=== PATIENT | female | born 1955 | race Caucasian/White ===

== ENCOUNTER 2022-09-28 16:15 | Inpatient (IN) | payer MEDICARE, OTHER ==
[~2022-09-28] VITALS: Ht 165.1 cm; Wt 85.7 kg
[2022-09-28] MEDS ORDERED: IV NS 0.9% 1,000 ML BAG IV ONE (17:00)
[2022-09-28] MEDS ORDERED: LISI20TA30 PO (17:18)
[2022-09-28] MEDS ORDERED: BLOO-1280 IN (17:18)
[2022-09-28] MEDS ORDERED: LEVO50TA PO (17:18)
[2022-09-28] MEDS ORDERED: CARV6.252 PO (17:18)
[2022-09-28] MEDS ORDERED: ATOR40TA PO (17:18)
[2022-09-28] MEDS ORDERED: MEDR10TA10 PO (17:18)
[2022-09-28] MEDS ORDERED: FOLI0.4T6 PO (17:18)
[2022-09-28] MEDS ORDERED: FURO-145 PO (17:18)
[2022-09-28 17:50] LABS: BASOPHILS % (AUTO) 0.2 % (0.0-2.0); EOSINOPHILS % (AUTO) 0.1 % (0.0-6.0); HEMATOCRIT 22 % (33-45); MEAN CORPUSCULAR HEMOGLOBIN 24 PG (26.0-33.0); MEAN CORPUSCULAR HGB CONC 28 g/dl (31.0-36.0); MEAN CORPUSCULAR VOLUME 83 fL (82-100); MONOCYTES # (AUTO) 0.9 K/uL (0.1-1.30); NEUTROPHILS # (AUTO) 14.9 K/uL (1.8-8.9); NEUTROPHILS % (AUTO) 83.7 % (43.0-81.0); PLATELET COUNT (AUTO) 75 K/uL (150-450); RED BLOOD CELL COUNT(AUTO) 2.69 MIL/uL (4.0-5.2); RED CELL DISTRIBUTION WIDTH 19.5 % (11.5-15.0); WHITE BLOOD COUNT (AUTO) 17.8 K/uL (4.3-11.0)
[2022-09-28 17:58] LABS: HEMOGLOBIN 6.4 g/dL (11.5-14.8)
[2022-09-28 18:06] LABS: INR 1.05 (0.91-1.10); PARTIAL THROMBOPLASTIN TIME 32.1 SEC (24.3-34.3)
[2022-09-28 18:18] LABS: LYMPHOCYTES % (MANUAL) 12 % (16-48); MONOCYTES % (MANUAL) 3 % (0-11.0); NEUTROPHILS % (MANUAL) 85 (42-76); PLATELET ESTIMATE DECREASED
[2022-09-28 18:46] LABS: ALANINE AMINOTRANSFERASE 12 U/L (12-78); ALKALINE PHOSPHATASE 260 U/L (46-116); ASPARTATE AMINOTRANSFERASE 28 U/L (15-37); BILIRUBIN,DIRECT 0.1 mg/dL (0.0-0.2); BILIRUBIN,TOTAL 0.3 mg/dL (0.2-1.0); CALCIUM, SERUM 7.9 mg/dL (8.5-10.1); CARBON DIOXIDE 19 mmol/L (21-32); CHLORIDE 108 mmol/L (98-107); CREATININE 3.4 mg/dL (0.6-1.3); GLUCOSE 127 mg/dL (74-106); SODIUM SERUM 137 mmol/L (136-145); TOTAL PROTEIN, SERUM 5.8 g/dL (6.4-8.2); UREA NITROGEN, BLOOD 56 mg/dL (7-18)
[2022-09-28] MEDS ORDERED: CEFTRIAXONE 1GM BAG (ER ONLY) 50 ML IV ONE ×2 (18:59→19:00)
[2022-09-28] MEDS ORDERED: AZITHROMYCIN 500 MG in IV D5W 250 ML IV ONE (19:00)
[2022-09-28 19:01] LABS: LACTIC ACID 2.8 mmol/L (0.4-2.0)
[2022-09-28 19:06] LABS: ALBUMIN 1.1 g/dL (3.4-5.0); POTASSIUM 7.8 mmol/L (3.5-5.1)
[2022-09-28] MEDS ORDERED: INSULIN REGULAR, HUMAN 100 UNIT/ML 10 ML VIAL IV ONE (19:30)
[2022-09-28] MEDS ORDERED: CALCIUM CHLORIDE 1,000 MG/10 ML DISP.SYRIN IV ONE (19:30)
[2022-09-28] MEDS ORDERED: ALBUTEROL FS 2.5 MG/3 ML VIAL.NEB NEB ONE (19:30)
[2022-09-28] MEDS ORDERED: SODIUM BICARBONATE SYR 100 MEQ in IV D5W 1,000 ML IV ONE (19:30)
[2022-09-28] MEDS ORDERED: SODIUM BICARBONATE SYR 50 MEQ/50 ML DISP.SYRIN IV ONE (19:30)
[2022-09-28] MEDS ORDERED: ACETAMINOPHEN 650 MG/SUPP.RECT RC ONE ×2 (19:30→21:08)
[2022-09-28] MEDS ORDERED: DEXTROSE 50%-WATER 50 ML DISP.SYRIN IV ONE (19:30)
[2022-09-28] MEDS ORDERED: ASPIRIN 300 MG/SUPP.RECT RC ONE ×2 (20:00→21:08)
[2022-09-28] MEDS ORDERED: AZITHROMYCIN 500 MG VIAL ONE (20:10)
[2022-09-28] MEDS ORDERED: DEXTROSE 50%-WATER 50 ML DISP.SYRIN ONE (21:08)
[2022-09-28] MEDS ORDERED: SODIUM BICARBONATE SYR 50 MEQ/50 ML DISP.SYRIN ONE (21:08)
[2022-09-28] MEDS ORDERED: INSULIN REGULAR, HUMAN 100 UNIT/ML 10 ML VIAL ONE (21:09)
[2022-09-28] MEDS ORDERED: ALBUTEROL FS 2.5 MG/3 ML VIAL.NEB ONE (21:27)
[2022-09-28 21:35] VITALS: O2SAT 97
[2022-09-28] MEDS ORDERED: CALCIUM CHLORIDE 1,000 MG/10 ML DISP.SYRIN ONE (21:48)
[2022-09-28 22:35] VITALS: O2SAT 100
[2022-09-28] MEDS ORDERED: Z GUARD REMEDY 4 OZ OINT TP PRN (23:00)
[2022-09-28] MEDS ORDERED: ZOLPIDEM TARTRATE 5 MG TABLET PO PRN (23:00)
[2022-09-28] MEDS ORDERED: SODIUM POLYSTYRENE SULFONATE 15 G/60 ML BOTTLE PO ONE (23:00)
[2022-09-28] MEDS ORDERED: MAG HYDROX/AL HYDROX/SIMETH 30 ML UDC PO PRN (23:00)
[2022-09-28] MEDS ORDERED: IV 1/2NS 1000 ML 1,000 ML IV PRN (23:00)
[2022-09-28] MEDS ORDERED: MAGNESIUM HYDROXIDE 30 ML UDC PO PRN (23:00)
[2022-09-28] MEDS ORDERED: ACETAMINOPHEN 325 MG TABLET PO PRN (23:00)
[2022-09-28] MEDS ORDERED: ONDANSETRON HCL/PF 4 MG/2 ML VIAL IVP PRN (23:00)
[2022-09-28 23:05] VITALS: BP 122/66; TEMP 99.1; O2SAT 96
[2022-09-29] VITALS (29 sets, daily range): BP systolic 94–122; BP diastolic 34–69; TEMP 97.5–208.4; O2SAT 92–100
[2022-09-29] MEDS ORDERED: SODIUM POLYSTYRENE SULFONATE 15 G/60 ML BOTTLE ONE (00:03)
[2022-09-29] MEDS: LEVOTHYROXINE SODIUM 50 MCG TABLET PO SCH (06:42)
[2022-09-29 07:52] LABS: BASOPHILS % (AUTO) 0.2 % (0.0-2.0); HEMATOCRIT 23 % (33-45); LYMPHOCYTES # (AUTO) 1.8 K/uL (0.8-4.8); LYMPHOCYTES % (AUTO) 9.8 % (20.0-44.0); MEAN CORPUSCULAR HEMOGLOBIN 24 PG (26.0-33.0); MEAN CORPUSCULAR HGB CONC 30 g/dl (31.0-36.0); MEAN CORPUSCULAR VOLUME 80 fL (82-100); MONOCYTES # (AUTO) 0.7 K/uL (0.1-1.30); NEUTROPHILS # (AUTO) 15.9 K/uL (1.8-8.9); PLATELET COUNT (AUTO) 57 K/uL (150-450); RED BLOOD CELL COUNT(AUTO) 2.86 MIL/uL (4.0-5.2); RED CELL DISTRIBUTION WIDTH 17.9 % (11.5-15.0); WHITE BLOOD COUNT (AUTO) 18.5 K/uL (4.3-11.0)
[2022-09-29 07:57] LABS: HEMOGLOBIN 6.9 g/dL (11.5-14.8)
[2022-09-29 08:04] LABS: CREATININE 3.5 mg/dL (0.6-1.3); MAGNESIUM 2.5 mg/dL (1.8-2.4); PHOSPHORUS 3.9 mg/dL (2.5-4.9)
[2022-09-29 08:13] LABS: THYROID STIMULATING HORMONE 9.215 uIU/mL (0.358-3.74)
[2022-09-29 08:15] LABS: POTASSIUM 6.5 mmol/L (3.5-5.1)
[2022-09-29] MEDS ORDERED: SODIUM POLYSTYRENE SULFONATE 15 G/60 ML BOTTLE NG ONE ×2 (08:30→17:00)
[2022-09-29] MEDS: CARVEDILOL 6.25 MG TABLET PO SCH ×2 (08:36→20:34)
[2022-09-29] MEDS ORDERED: ALBUTEROL FS 2.5 MG/3 ML VIAL.NEB NEB ONE (09:00)
[2022-09-29] MEDS ORDERED: DEXTROSE 50%-WATER 50 ML DISP.SYRIN IVP ONE (09:00)
[2022-09-29] MEDS ORDERED: INSULIN REGULAR, HUMAN 100 UNIT/ML 10 ML VIAL SQ ONE (09:00)
[2022-09-29] MEDS ORDERED: INSULIN REGULAR, HUMAN 100 UNIT/ML 10 ML VIAL IV ONE (09:00)
[2022-09-29] MEDS: HEPARIN SODIUM, PORCINE 5000 UNITS/1 ML VIAL SQ SCH ×2 (10:00→20:35)
[2022-09-29 10:22] LABS: THYROID STIMULATING HORMONE 8.788 uIU/mL (0.358-3.74)
[2022-09-29] MEDS: FOLIC ACID 1 MG TABLET PO SCH (11:17)
[2022-09-29] MEDS: PANTOPRAZOLE 40 MG VIAL IV SCH (11:17)
[2022-09-29 12:18] LABS: APPEARANCE,URINE TURBID (CLEAR); BILIRUBIN,URINE 1+ (NEGATIVE); BLOOD, URINE 3+ Ery/uL (NEGATIVE); COLOR,URINE AMBER (YELLOW); EOSINOPHIL,URINE None Seen; KETONES,URINE NEGATIVE (NEGATIVE); LEUKOCYTE ESTERASE ,URINE 2+ (NEGATIVE); NITRITE, URINE POSITIVE (NEGATIVE); PROTEIN,URINE 2+ mg/dl (NEGATIVE); UGLUCOSE NEGATIVE (NEGATIVE); UROBILINOGEN,URINE 0.2 EU/dL (0.2)
[2022-09-29 12:23] LABS: ADD URINE CULTURE YES; BACTERIA,URINE Moderate /HPF (None Seen); SQUAMOUS EPITHELIAL CELL,UR Few /HPF (None Seen); WBC,URINE 21-50 /HPF (0-3)
[2022-09-29 12:28] LABS: CREATININE, URINE 50.4 MG/DL (30.0-125.0)
[2022-09-29 12:29] LABS: CALCIUM, SERUM 8.2 mg/dL (8.5-10.1); CREATININE 3.5 mg/dL (0.6-1.3)
[2022-09-29 12:38] LABS: THYROID STIMULATING HORMONE 8.824 uIU/mL (0.358-3.74)
[2022-09-29 12:39] LABS: POTASSIUM 6.4 mmol/L (3.5-5.1)
[2022-09-29 12:40] LABS: LACTIC ACID 5.5 mmol/L (0.4-2.0)
[2022-09-29] MEDS: medroxyPROGESTERone ACET 5 MG TABLET PO SCH (14:00)
[2022-09-29] MEDS: NEPRO 1,000 ML BOTTLE GT PRN (16:57)
[2022-09-29] MEDS: IV NS 0.9% 1,000 ML IV PRN (16:57)
[2022-09-29 17:24] LABS: CALCIUM, SERUM 7.6 mg/dL (8.5-10.1); CREATININE 3.2 mg/dL (0.6-1.3); POTASSIUM 5.1 mmol/L (3.5-5.1)
[2022-09-29] MEDS: CEFTRIAXONE 1 G in IV D5W 50 ML IV SCH (19:19)
[2022-09-29] MEDS: AZITHROMYCIN 500 MG in IV D5W 250 ML IV SCH (20:34)
[2022-09-29 21:19] LABS: ANISOCYTOSIS 1+; BAND % (MANUAL) 1 % (0.0-5.0); EOSINOPHILS % (MANUAL) 1 % (0-4); LYMPHOCYTES % (MANUAL) 10 % (16-48); MONOCYTES % (MANUAL) 3 % (0-11.0); NEUTROPHILS % (MANUAL) 85 (42-76); PLATELET ESTIMATE DECREASED
[2022-09-29 21:20] LABS: OVALOCYTES 1+
[2022-09-29] MEDS ORDERED: ATORVASTATIN 40 MG TABLET PO SCH (22:00)
[2022-09-30] VITALS (24 sets, daily range): BP systolic 89–123; BP diastolic 44–68; TEMP 97.9–98.5; O2SAT 95–100
[2022-09-30 03:43] LABS: BASOPHILS % (AUTO) 0.1 % (0.0-2.0); EOSINOPHILS % (AUTO) 0.1 % (0.0-6.0); HEMATOCRIT 25 % (33-45); HEMOGLOBIN 7.9 g/dL (11.5-14.8); LYMPHOCYTES # (AUTO) 1.4 K/uL (0.8-4.8); LYMPHOCYTES % (AUTO) 8.9 % (20.0-44.0); MEAN CORPUSCULAR HEMOGLOBIN 25 PG (26.0-33.0); MEAN CORPUSCULAR HGB CONC 31 g/dl (31.0-36.0); MEAN CORPUSCULAR VOLUME 81 fL (82-100); MONOCYTES # (AUTO) 0.5 K/uL (0.1-1.30); MONOCYTES % (AUTO) 3.4 % (2.0-12.0); NEUTROPHILS # (AUTO) 13.7 K/uL (1.8-8.9); NEUTROPHILS % (AUTO) 87.5 % (43.0-81.0); PLATELET COUNT (AUTO) 52 K/uL (150-450); RED BLOOD CELL COUNT(AUTO) 3.11 MIL/uL (4.0-5.2); RED CELL DISTRIBUTION WIDTH 17.9 % (11.5-15.0); WHITE BLOOD COUNT (AUTO) 15.7 K/uL (4.3-11.0)
[2022-09-30 05:05] LABS: BILIRUBIN,TOTAL 0.2 mg/dL (0.2-1.0); CALCIUM, SERUM 7.6 mg/dL (8.5-10.1); CREATININE 2.6 mg/dL (0.6-1.3); MAGNESIUM 2.2 mg/dL (1.8-2.4); PHOSPHORUS 4.3 mg/dL (2.5-4.9); POTASSIUM 4.2 mmol/L (3.5-5.1); TOTAL PROTEIN, SERUM 4.6 g/dL (6.4-8.2)
[2022-09-30 05:08] LABS: ALBUMIN 0.9 g/dL (3.4-5.0)
[2022-09-30 05:31] LABS: HIV-1 p24 ANTIGEN NON REACTIVE (NONREACTIVE); HIV-1/2 ANTIBODY NON REACTIVE (NONREACTIVE)
[2022-09-30] MEDS: IV NS 0.9% 1,000 ML IV PRN ×2 (06:01→16:49)
[2022-09-30] MEDS: LEVOTHYROXINE SODIUM 50 MCG TABLET PO SCH (06:41)
[2022-09-30] MEDS: HEPARIN SODIUM, PORCINE 5000 UNITS/1 ML VIAL SQ SCH ×2 (08:23→20:41)
[2022-09-30] MEDS: PROSOURCE / PROSTAT (PYXIS) 30 ML UDC GT SCH (08:28)
[2022-09-30] MEDS: PANTOPRAZOLE 40 MG VIAL IV SCH (08:28)
[2022-09-30] MEDS: FOLIC ACID 1 MG TABLET PO SCH (08:28)
[2022-09-30] MEDS: CARVEDILOL 6.25 MG TABLET PO SCH (08:30)
[2022-09-30] MEDS: medroxyPROGESTERone ACET 5 MG TABLET PO SCH (11:28)
[2022-09-30] MEDS ORDERED: medroxyPROGESTERone ACET 5 MG TABLET GT SCH (12:22)
[2022-09-30] MEDS ORDERED: MAG HYDROX/AL HYDROX/SIMETH 30 ML UDC GT PRN (12:23)
[2022-09-30] MEDS ORDERED: ZOLPIDEM TARTRATE 5 MG TABLET GT PRN (12:23)
[2022-09-30] MEDS ORDERED: MAGNESIUM HYDROXIDE 30 ML UDC GT PRN (12:23)
[2022-09-30 13:32] LABS: ANISOCYTOSIS 1+; BASOPHILS % (MANUAL) 0 % (0.0-2.0); EOSINOPHILS % (MANUAL) 0 % (0-4); LYMPHOCYTES % (MANUAL) 11 % (16-48); MONOCYTES % (MANUAL) 5 % (0-11.0); NEUTROPHILS % (MANUAL) 84 (42-76); PLATELET ESTIMATE DECREASED
[2022-09-30] MEDS: ARGININE/GLUTAMINE/CALCIUM BMB 1 EACH POWD.PACK GT SCH (16:53)
[2022-09-30] MEDS: CEFTRIAXONE 1 G in IV D5W 50 ML IV SCH (18:33)
[2022-09-30] MEDS: AZITHROMYCIN 500 MG in IV D5W 250 ML IV SCH (19:48)
[2022-09-30] MEDS: CARVEDILOL 6.25 MG TABLET GT SCH (20:41)
[2022-09-30] MEDS: ATORVASTATIN 40 MG TABLET GT SCH (22:57)
[2022-10-01] VITALS (21 sets, daily range): BP systolic 97–131; BP diastolic 43–83; TEMP 97.8–98.1; O2SAT 21–100
[2022-10-01] MEDS: NEPRO 1,000 ML BOTTLE GT PRN (01:16)
[2022-10-01] MEDS: IV NS 0.9% 1,000 ML IV PRN ×2 (05:25→16:16)
[2022-10-01 05:47] LABS: BASOPHILS % (AUTO) 0.1 % (0.0-2.0); EOSINOPHILS # (AUTO) 0.1 K/uL (0.0-0.7); EOSINOPHILS % (AUTO) 0.4 % (0.0-6.0); HEMATOCRIT 24 % (33-45); HEMOGLOBIN 7.7 g/dL (11.5-14.8); LYMPHOCYTES # (AUTO) 1.2 K/uL (0.8-4.8); LYMPHOCYTES % (AUTO) 8.4 % (20.0-44.0); MEAN CORPUSCULAR HEMOGLOBIN 26 PG (26.0-33.0); MEAN CORPUSCULAR HGB CONC 32 g/dl (31.0-36.0); MEAN CORPUSCULAR VOLUME 81 fL (82-100); MONOCYTES # (AUTO) 0.4 K/uL (0.1-1.30); MONOCYTES % (AUTO) 2.6 % (2.0-12.0); NEUTROPHILS # (AUTO) 12.5 K/uL (1.8-8.9); NEUTROPHILS % (AUTO) 88.5 % (43.0-81.0); PLATELET COUNT (AUTO) 53 K/uL (150-450); RED BLOOD CELL COUNT(AUTO) 3.01 MIL/uL (4.0-5.2); RED CELL DISTRIBUTION WIDTH 17.7 % (11.5-15.0); WHITE BLOOD COUNT (AUTO) 14.2 K/uL (4.3-11.0)
[2022-10-01 05:55] LABS: CALCIUM, SERUM 7.4 mg/dL (8.5-10.1); CREATININE 1.4 mg/dL (0.6-1.3)
[2022-10-01 06:10] LABS: LACTIC ACID 2.1 mmol/L (0.4-2.0)
[2022-10-01 08:06] LABS: BILIRUBIN,DIRECT 0.1 mg/dL (0.0-0.2)
[2022-10-01 08:11] LABS: LACTIC ACID REFLEX 1.7 mmol/L (0.4-1.9)
[2022-10-01] MEDS: HEPARIN SODIUM, PORCINE 5000 UNITS/1 ML VIAL SQ SCH (08:31)
[2022-10-01] MEDS: FOLIC ACID 1 MG TABLET GT SCH (08:37)
[2022-10-01] MEDS: PANTOPRAZOLE 40 MG VIAL IV SCH (08:37)
[2022-10-01] MEDS: CARVEDILOL 6.25 MG TABLET GT SCH ×2 (08:38→21:32)
[2022-10-01] MEDS: LEVOTHYROXINE SODIUM 50 MCG TABLET GT SCH (08:41)
[2022-10-01] MEDS: ARGININE/GLUTAMINE/CALCIUM BMB 1 EACH POWD.PACK GT SCH ×2 (08:43→16:40)
[2022-10-01] MEDS: PROSOURCE / PROSTAT (PYXIS) 30 ML UDC GT SCH (08:43)
[2022-10-01] MEDS: medroxyPROGESTERone ACET 5 MG TABLET GT SCH (11:20)
[2022-10-01] MEDS: POTASSIUM CHLORIDE 20 MEQ POWDER PACKET NG SCH ×2 (11:20→13:11)
[2022-10-01 13:53] LABS: ANISOCYTOSIS 1+; BASOPHILS % (MANUAL) 0 % (0.0-2.0); EOSINOPHILS % (MANUAL) 0 % (0-4); LYMPHOCYTES % (MANUAL) 11 % (16-48); MONOCYTES % (MANUAL) 3 % (0-11.0); NEUTROPHILS % (MANUAL) 86 (42-76); PLATELET ESTIMATE DECREASED
[2022-10-01] MEDS: CEFTRIAXONE 1 G in IV D5W 50 ML IV SCH (20:04)
[2022-10-01] MEDS: AZITHROMYCIN 500 MG in IV D5W 250 ML IV SCH (20:58)
[2022-10-01] MEDS: ATORVASTATIN 40 MG TABLET GT SCH (21:32)
[2022-10-02] VITALS: BP 128/63; TEMP 98.4; O2SAT 95
[2022-10-02 04:00] VITALS: BP 147/65; TEMP 98; O2SAT 100
[2022-10-02] MEDS: LEVOTHYROXINE SODIUM 50 MCG TABLET GT SCH (07:13)
[2022-10-02] MEDS: IV NS 0.9% 1,000 ML IV PRN ×2 (07:28→19:11)
[2022-10-02 08:00] VITALS: BP 153/76; TEMP 97.3; O2SAT 100
[2022-10-02] MEDS: FOLIC ACID 1 MG TABLET GT SCH (10:02)
[2022-10-02] MEDS: ARGININE/GLUTAMINE/CALCIUM BMB 1 EACH POWD.PACK GT SCH ×2 (10:02→16:36)
[2022-10-02] MEDS: PROSOURCE / PROSTAT (PYXIS) 30 ML UDC GT SCH (10:02)
[2022-10-02] MEDS: PANTOPRAZOLE 40 MG VIAL IV SCH (10:03)
[2022-10-02] MEDS: CARVEDILOL 6.25 MG TABLET GT SCH ×2 (10:03→20:55)
[2022-10-02 12:14] VITALS: BP 135/79; TEMP 97.5; O2SAT 98
[2022-10-02] MEDS: medroxyPROGESTERone ACET 5 MG TABLET GT SCH (12:39)
[2022-10-02] MEDS: NEPRO 1,000 ML BOTTLE GT PRN (13:03)
[2022-10-02 15:03] LABS: BASOPHILS % (AUTO) 0.1 % (0.0-2.0); EOSINOPHILS % (AUTO) 0.2 % (0.0-6.0); HEMATOCRIT 31 % (33-45); LYMPHOCYTES # (AUTO) 0.9 K/uL (0.8-4.8); LYMPHOCYTES % (AUTO) 8.5 % (20.0-44.0); MEAN CORPUSCULAR HEMOGLOBIN 27 PG (26.0-33.0); MEAN CORPUSCULAR HGB CONC 30 g/dl (31.0-36.0); MEAN CORPUSCULAR VOLUME 91 fL (82-100); MONOCYTES # (AUTO) 0.3 K/uL (0.1-1.30); MONOCYTES % (AUTO) 2.9 % (2.0-12.0); NEUTROPHILS # (AUTO) 9.3 K/uL (1.8-8.9); NEUTROPHILS % (AUTO) 88.3 % (43.0-81.0); RED BLOOD CELL COUNT(AUTO) 3.36 MIL/uL (4.0-5.2); RED CELL DISTRIBUTION WIDTH 18.5 % (11.5-15.0); WHITE BLOOD COUNT (AUTO) 10.5 K/uL (4.3-11.0)
[2022-10-02 15:10] LABS: CALCIUM, SERUM 7.7 mg/dL (8.5-10.1); CREATININE 0.9 mg/dL (0.6-1.3); POTASSIUM 3.7 mmol/L (3.5-5.1)
[2022-10-02 15:32] LABS: PLATELET COUNT (AUTO) 10 K/uL (150-450)
[2022-10-02 16:00] VITALS: BP 149/63; TEMP 97.5; O2SAT 98
[2022-10-02 16:01] LABS: ANISOCYTOSIS 1+; LYMPHOCYTES % (MANUAL) 9 % (16-48); MONOCYTES % (MANUAL) 3 % (0-11.0); NEUTROPHILS % (MANUAL) 88 (42-76); PLATELET ESTIMATE DECREASED
[2022-10-02 16:02] LABS: OVALOCYTES RARE; TARGET CELLS 1+
[2022-10-02] MEDS: CEFTRIAXONE 1 G in IV D5W 50 ML IV SCH (19:08)
[2022-10-02 20:00] VITALS: BP 166/56; TEMP 98.3; O2SAT 97
[2022-10-02] MEDS: AZITHROMYCIN 500 MG in IV D5W 250 ML IV SCH (20:14)
[2022-10-02] MEDS: ATORVASTATIN 40 MG TABLET GT SCH (21:09)
[2022-10-03] VITALS: BP 140/74; TEMP 98.2; O2SAT 95
[2022-10-03 04:00] VITALS: BP 156/64; TEMP 98.6; O2SAT 98
[2022-10-03] MEDS: LEVOTHYROXINE SODIUM 50 MCG TABLET GT SCH (06:44)
[2022-10-03 07:08] LABS: BASOPHILS % (AUTO) 0.2 % (0.0-2.0); EOSINOPHILS # (AUTO) 0.1 K/uL (0.0-0.7); EOSINOPHILS % (AUTO) 0.5 % (0.0-6.0); HEMATOCRIT 29 % (33-45); HEMOGLOBIN 9.3 g/dL (11.5-14.8); LYMPHOCYTES # (AUTO) 1.1 K/uL (0.8-4.8); LYMPHOCYTES % (AUTO) 7.5 % (20.0-44.0); MEAN CORPUSCULAR HEMOGLOBIN 27 PG (26.0-33.0); MEAN CORPUSCULAR HGB CONC 32 g/dl (31.0-36.0); MEAN CORPUSCULAR VOLUME 83 fL (82-100); MONOCYTES # (AUTO) 0.5 K/uL (0.1-1.30); MONOCYTES % (AUTO) 3.5 % (2.0-12.0); NEUTROPHILS # (AUTO) 12.8 K/uL (1.8-8.9); NEUTROPHILS % (AUTO) 88.3 % (43.0-81.0); RED BLOOD CELL COUNT(AUTO) 3.52 MIL/uL (4.0-5.2); RED CELL DISTRIBUTION WIDTH 17.8 % (11.5-15.0); WHITE BLOOD COUNT (AUTO) 14.5 K/uL (4.3-11.0)
[2022-10-03 07:25] LABS: PLATELET COUNT (AUTO) 39 K/uL (150-450)
[2022-10-03 07:46] LABS: CALCIUM, SERUM 7.6 mg/dL (8.5-10.1); CREATININE 0.9 mg/dL (0.6-1.3); POTASSIUM 3.4 mmol/L (3.5-5.1)
[2022-10-03 08:00] VITALS: BP 164/78; TEMP 98.4; O2SAT 97
[2022-10-03] MEDS ORDERED: POTASSIUM CHLORIDE 20 MEQ POWDER PACKET GT ONE (09:00)
[2022-10-03] MEDS: PROSOURCE / PROSTAT (PYXIS) 30 ML UDC GT SCH (09:11)
[2022-10-03] MEDS: PANTOPRAZOLE 40 MG VIAL IV SCH (09:18)
[2022-10-03] MEDS: FOLIC ACID 1 MG TABLET GT SCH (09:20)
[2022-10-03] MEDS: CARVEDILOL 6.25 MG TABLET GT SCH ×2 (09:20→21:57)
[2022-10-03] MEDS: ARGININE/GLUTAMINE/CALCIUM BMB 1 EACH POWD.PACK GT SCH ×2 (09:25→16:18)
[2022-10-03] MEDS: IV NS 0.9% 1,000 ML IV PRN ×2 (09:49→22:47)
[2022-10-03 12:00] VITALS: BP 152/75; TEMP 98.5; O2SAT 98
[2022-10-03 12:33] LABS: ANISOCYTOSIS 1+; BASOPHILS % (MANUAL) 0 % (0.0-2.0); EOSINOPHILS % (MANUAL) 2 % (0-4); LYMPHOCYTES % (MANUAL) 9 % (16-48); MONOCYTES % (MANUAL) 5 % (0-11.0); NEUTROPHILS % (MANUAL) 84 (42-76); PLATELET ESTIMATE DECREASED
[2022-10-03] MEDS: medroxyPROGESTERone ACET 5 MG TABLET GT SCH (12:42)
[2022-10-03 16:00] VITALS: BP 123/71; TEMP 98.5; O2SAT 98
[2022-10-03] MEDS: CEFTRIAXONE 1 G in IV D5W 50 ML IV SCH (18:06)
[2022-10-03] MEDS: NEPRO 1,000 ML BOTTLE GT PRN (18:14)
[2022-10-03] MEDS: AZITHROMYCIN 500 MG in IV D5W 250 ML IV SCH (20:20)
[2022-10-03] MEDS: ATORVASTATIN 40 MG TABLET GT SCH (21:55)
[2022-10-03 21:57] VITALS: BP 170/72; TEMP 98.5; O2SAT 100
[2022-10-04] VITALS (19 sets, daily range): BP systolic 101–153; BP diastolic 41–72; TEMP 98–99.1; O2SAT 93–100
[2022-10-04] MEDS: LEVOTHYROXINE SODIUM 50 MCG TABLET GT SCH (06:45)
[2022-10-04 08:04] LABS: BASOPHILS % (AUTO) 0.2 % (0.0-2.0); EOSINOPHILS # (AUTO) 0.1 K/uL (0.0-0.7); EOSINOPHILS % (AUTO) 0.5 % (0.0-6.0); HEMATOCRIT 27 % (33-45); HEMOGLOBIN 8.6 g/dL (11.5-14.8); LYMPHOCYTES # (AUTO) 1.2 K/uL (0.8-4.8); LYMPHOCYTES % (AUTO) 7.1 % (20.0-44.0); MEAN CORPUSCULAR HEMOGLOBIN 27 PG (26.0-33.0); MEAN CORPUSCULAR HGB CONC 31 g/dl (31.0-36.0); MEAN CORPUSCULAR VOLUME 85 fL (82-100); MONOCYTES # (AUTO) 0.6 K/uL (0.1-1.30); MONOCYTES % (AUTO) 3.8 % (2.0-12.0); NEUTROPHILS # (AUTO) 14.6 K/uL (1.8-8.9); NEUTROPHILS % (AUTO) 88.4 % (43.0-81.0); PLATELET COUNT (AUTO) 52 K/uL (150-450); RED CELL DISTRIBUTION WIDTH 18.3 % (11.5-15.0); WHITE BLOOD COUNT (AUTO) 16.5 K/uL (4.3-11.0)
[2022-10-04 08:25] LABS: CALCIUM, SERUM 7.9 mg/dL (8.5-10.1); CREATININE 0.6 mg/dL (0.6-1.3); POTASSIUM 3.9 mmol/L (3.5-5.1)
[2022-10-04] MEDS: PANTOPRAZOLE 40 MG/PACK PACK GT SCH (08:58)
[2022-10-04] MEDS: CARVEDILOL 6.25 MG TABLET GT SCH ×2 (08:59→21:08)
[2022-10-04] MEDS: FOLIC ACID 1 MG TABLET GT SCH (08:59)
[2022-10-04] MEDS: ARGININE/GLUTAMINE/CALCIUM BMB 1 EACH POWD.PACK GT SCH ×2 (08:59→17:00)
[2022-10-04] MEDS: PROSOURCE / PROSTAT (PYXIS) 30 ML UDC GT SCH (08:59)
[2022-10-04] MEDS: IV NS 0.9% 1,000 ML IV PRN (09:35)
[2022-10-04] MEDS: medroxyPROGESTERone ACET 5 MG TABLET GT SCH (11:37)
[2022-10-04 11:38] LABS: BAND % (MANUAL) 2 % (0.0-5.0); BASOPHILS % (MANUAL) 0 % (0.0-2.0); EOSINOPHILS % (MANUAL) 0 % (0-4); LYMPHOCYTES % (MANUAL) 9 % (16-48); MONOCYTES % (MANUAL) 4 % (0-11.0); NEUTROPHILS % (MANUAL) 85 (42-76); PLATELET ESTIMATE DECREASED
[2022-10-04 13:41] LABS: ABG BASE EXCESS -2.6 mmol/L; ABG OXYGEN SATURATION 90.3 % (92.0-98.5); ABG PCO2 33.9 mmHg (35.0-45.0); ABG PH 7.416 (7.350-7.450); ABG PO2 59.1 mmHg (75.0-100.0); AaDO2 129.4 mmHg; COHb 1.7 % (0.5-1.5); MetHb 0.3 % (0.0-1.5); O2Hb 88.5 % (94.0-97.0); SITE, ABG Right Radial; VENT MODE, BG 3 LPM NC
[2022-10-04] MEDS: PROPOFOL 100 ML IV PRN ×2 (14:10→20:05)
[2022-10-04] MEDS ORDERED: ETOMIDATE 2 MG/ML VIAL IV ONE (17:09)
[2022-10-04] MEDS ORDERED: PROPOFOL 200 MG/20 ML VIAL IV ONE (17:10)
[2022-10-04] MEDS ORDERED: ROCURONIUM BROMIDE 50 MG/5 ML IV ONE (17:10)
[2022-10-04 17:52] LABS: ABG BASE EXCESS -4.3 mmol/L; ABG PCO2 37.6 mmHg (35.0-45.0); ABG PH 7.358 (7.350-7.450); ABG PO2 218.2 mmHg (75.0-100.0); ABG TOTAL HEMOGLOBIN 10.6 G/dL (12.0-16.0); COHb 0.3 % (0.5-1.5); MetHb 0.4 % (0.0-1.5); O2Hb 98.3 % (94.0-97.0); PEEP,BG 5 cm H2O; SITE, ABG Left Radial; VENT MODE, BG AC 100%; VT, ABG 450 mL
[2022-10-04] MEDS: IPRATROPIUM NEB FS 0.5 MG/2.5 ML AMPUL.NEB NEB SCH ×2 (20:54→23:05)
[2022-10-04] MEDS: ALBUTEROL FS 2.5 MG/3 ML VIAL.NEB NEB SCH ×2 (20:54→23:05)
[2022-10-04] MEDS: ATORVASTATIN 40 MG TABLET GT SCH (21:08)
[2022-10-04] MEDS: CEFEPIME 2 GM in IV D5W 100 ML IV SCH (21:08)
[2022-10-04] MEDS: HYDROCORTISONE SOD SUCCINATE 100 MG/2 ML VIAL IV SCH (21:08)
[2022-10-05] VITALS (43 sets, daily range): BP systolic 95–128; BP diastolic 20–93; TEMP 98–99.3; O2SAT 99–100
[2022-10-05] MEDS: IV NS 0.9% 1,000 ML IV PRN (01:25)
[2022-10-05] MEDS: PROPOFOL 100 ML IV PRN ×4 (01:25→23:30)
[2022-10-05] MEDS: ALBUTEROL FS 2.5 MG/3 ML VIAL.NEB NEB SCH ×6 (03:43→23:53)
[2022-10-05] MEDS: IPRATROPIUM NEB FS 0.5 MG/2.5 ML AMPUL.NEB NEB SCH ×6 (03:43→23:53)
[2022-10-05] MEDS: HYDROCORTISONE SOD SUCCINATE 100 MG/2 ML VIAL IV SCH ×3 (05:22→22:34)
[2022-10-05] MEDS: CEFEPIME 2 GM in IV D5W 100 ML IV SCH ×3 (05:22→22:34)
[2022-10-05] MEDS: LEVOTHYROXINE SODIUM 50 MCG TABLET GT SCH (06:01)
[2022-10-05] MEDS: PANTOPRAZOLE 40 MG/PACK PACK GT SCH (08:21)
[2022-10-05] MEDS: PROSOURCE / PROSTAT (PYXIS) 30 ML UDC GT SCH (08:21)
[2022-10-05] MEDS: ARGININE/GLUTAMINE/CALCIUM BMB 1 EACH POWD.PACK GT SCH ×2 (08:21→17:36)
[2022-10-05] MEDS: FOLIC ACID 1 MG TABLET GT SCH (08:22)
[2022-10-05] MEDS: CARVEDILOL 6.25 MG TABLET GT SCH ×2 (08:22→21:00)
[2022-10-05] MEDS: medroxyPROGESTERone ACET 5 MG TABLET GT SCH (12:03)
[2022-10-05 13:17] LABS: CALCIUM, SERUM 7.7 mg/dL (8.5-10.1); CREATININE 0.6 mg/dL (0.6-1.3); POTASSIUM 4.5 mmol/L (3.5-5.1)
[2022-10-05 14:56] LABS: HEMATOCRIT 26 % (33-45); LYMPHOCYTES # (AUTO) 1.1 K/uL (0.8-4.8); LYMPHOCYTES % (AUTO) 6.7 % (20.0-44.0); MEAN CORPUSCULAR HEMOGLOBIN 27 PG (26.0-33.0); MEAN CORPUSCULAR HGB CONC 31 g/dl (31.0-36.0); MEAN CORPUSCULAR VOLUME 85 fL (82-100); MONOCYTES # (AUTO) 0.4 K/uL (0.1-1.30); MONOCYTES % (AUTO) 2.4 % (2.0-12.0); NEUTROPHILS # (AUTO) 14.3 K/uL (1.8-8.9); NEUTROPHILS % (AUTO) 90.9 % (43.0-81.0); PLATELET COUNT (AUTO) 70 K/uL (150-450); RED BLOOD CELL COUNT(AUTO) 3.02 MIL/uL (4.0-5.2); RED CELL DISTRIBUTION WIDTH 18.5 % (11.5-15.0); WHITE BLOOD COUNT (AUTO) 15.8 K/uL (4.3-11.0)
[2022-10-05] MEDS ORDERED: NOREPINEPHRINE 8 MG in IV NS 0.9% 242 ML IV PRN (16:00)
[2022-10-05 16:13] LABS: PLATELET ESTIMATE DECREASED
[2022-10-05 16:22] LABS: BAND % (MANUAL) 1 % (0.0-5.0); LYMPHOCYTES % (MANUAL) 4 % (16-48); MONOCYTES % (MANUAL) 3 % (0-11.0); NEUTROPHILS % (MANUAL) 92 (42-76)
[2022-10-05] MEDS: ATORVASTATIN 40 MG TABLET GT SCH (22:34)
[2022-10-06] VITALS (26 sets, daily range): BP systolic 75–137; BP diastolic 44–76; TEMP 97.5–98; O2SAT 98–100
[2022-10-06] MEDS: IPRATROPIUM NEB FS 0.5 MG/2.5 ML AMPUL.NEB NEB SCH ×6 (03:26→23:40)
[2022-10-06] MEDS: ALBUTEROL FS 2.5 MG/3 ML VIAL.NEB NEB SCH ×6 (03:26→23:40)
[2022-10-06] MEDS: HYDROCORTISONE SOD SUCCINATE 100 MG/2 ML VIAL IV SCH ×3 (05:53→21:49)
[2022-10-06] MEDS: CEFEPIME 2 GM in IV D5W 100 ML IV SCH ×3 (05:53→21:49)
[2022-10-06] MEDS: LEVOTHYROXINE SODIUM 50 MCG TABLET GT SCH (06:02)
[2022-10-06 06:48] LABS: BASOPHILS % (AUTO) 0.1 % (0.0-2.0); HEMATOCRIT 29 % (33-45); LYMPHOCYTES # (AUTO) 1.5 K/uL (0.8-4.8); LYMPHOCYTES % (AUTO) 8.1 % (20.0-44.0); MEAN CORPUSCULAR HEMOGLOBIN 27 PG (26.0-33.0); MEAN CORPUSCULAR HGB CONC 32 g/dl (31.0-36.0); MEAN CORPUSCULAR VOLUME 84 fL (82-100); MONOCYTES # (AUTO) 0.6 K/uL (0.1-1.30); MONOCYTES % (AUTO) 3.1 % (2.0-12.0); NEUTROPHILS # (AUTO) 15.9 K/uL (1.8-8.9); NEUTROPHILS % (AUTO) 88.7 % (43.0-81.0); PLATELET COUNT (AUTO) 96 K/uL (150-450); RED CELL DISTRIBUTION WIDTH 18.5 % (11.5-15.0); WHITE BLOOD COUNT (AUTO) 17.9 K/uL (4.3-11.0)
[2022-10-06 06:50] LABS: CALCIUM, SERUM 7.9 mg/dL (8.5-10.1); CREATININE 0.8 mg/dL (0.6-1.3); POTASSIUM 4.4 mmol/L (3.5-5.1)
[2022-10-06] MEDS: PROPOFOL 100 ML IV PRN (07:15)
[2022-10-06] MEDS: CARVEDILOL 6.25 MG TABLET GT SCH ×2 (08:46→21:00)
[2022-10-06] MEDS: FOLIC ACID 1 MG TABLET GT SCH (08:48)
[2022-10-06] MEDS: PANTOPRAZOLE 40 MG/PACK PACK GT SCH (08:48)
[2022-10-06] MEDS: PROSOURCE / PROSTAT (PYXIS) 30 ML UDC GT SCH (08:48)
[2022-10-06] MEDS: ARGININE/GLUTAMINE/CALCIUM BMB 1 EACH POWD.PACK GT SCH ×2 (08:48→17:12)
[2022-10-06] MEDS: medroxyPROGESTERone ACET 5 MG TABLET GT SCH (11:13)
[2022-10-06] MEDS ORDERED: BUMETANIDE INJ 0.25 MG/ML VIAL IV ONE (12:30)
[2022-10-06] MEDS ORDERED: NEPRO 1,000 ML BOTTLE GT PRN (14:30)
[2022-10-06] MEDS: NEPRO 1,000 ML BOTTLE GT PRN (15:26)
[2022-10-06] MEDS: ATORVASTATIN 40 MG TABLET GT SCH (21:49)
[2022-10-07] VITALS (24 sets, daily range): BP systolic 88–137; BP diastolic 48–77; TEMP 97.6–98; O2SAT 94–100
[2022-10-07] MEDS: ALBUTEROL FS 2.5 MG/3 ML VIAL.NEB NEB SCH ×5 (03:05→19:15)
[2022-10-07] MEDS: IPRATROPIUM NEB FS 0.5 MG/2.5 ML AMPUL.NEB NEB SCH ×5 (03:05→19:15)
[2022-10-07] MEDS: HYDROCORTISONE SOD SUCCINATE 100 MG/2 ML VIAL IV SCH ×3 (04:39→21:40)
[2022-10-07] MEDS: CEFEPIME 2 GM in IV D5W 100 ML IV SCH ×3 (04:39→21:40)
[2022-10-07] MEDS: LEVOTHYROXINE SODIUM 50 MCG TABLET GT SCH (06:12)
[2022-10-07 07:16] LABS: BASOPHILS % (AUTO) 0.1 % (0.0-2.0); HEMATOCRIT 30 % (33-45); HEMOGLOBIN 8.9 g/dL (11.5-14.8); LYMPHOCYTES # (AUTO) 1.2 K/uL (0.8-4.8); LYMPHOCYTES % (AUTO) 6.9 % (20.0-44.0); MEAN CORPUSCULAR HEMOGLOBIN 26 PG (26.0-33.0); MEAN CORPUSCULAR HGB CONC 30 g/dl (31.0-36.0); MEAN CORPUSCULAR VOLUME 87 fL (82-100); MONOCYTES # (AUTO) 0.6 K/uL (0.1-1.30); MONOCYTES % (AUTO) 3.3 % (2.0-12.0); NEUTROPHILS % (AUTO) 89.7 % (43.0-81.0); PLATELET COUNT (AUTO) 101 K/uL (150-450); RED CELL DISTRIBUTION WIDTH 19.5 % (11.5-15.0); WHITE BLOOD COUNT (AUTO) 16.8 K/uL (4.3-11.0)
[2022-10-07 07:32] LABS: CALCIUM, SERUM 8.1 mg/dL (8.5-10.1); CREATININE 0.6 mg/dL (0.6-1.3); POTASSIUM 4.7 mmol/L (3.5-5.1)
[2022-10-07] MEDS: CARVEDILOL 6.25 MG TABLET GT SCH ×2 (09:00→21:54)
[2022-10-07] MEDS: PANTOPRAZOLE 40 MG/PACK PACK GT SCH (09:33)
[2022-10-07] MEDS: ARGININE/GLUTAMINE/CALCIUM BMB 1 EACH POWD.PACK GT SCH ×2 (09:33→17:09)
[2022-10-07] MEDS: FOLIC ACID 1 MG TABLET GT SCH (09:33)
[2022-10-07] MEDS: PROSOURCE / PROSTAT (PYXIS) 30 ML UDC GT SCH (09:35)
[2022-10-07] MEDS: medroxyPROGESTERone ACET 5 MG TABLET GT SCH (13:09)
[2022-10-07] MEDS: NEPRO 1,000 ML BOTTLE GT PRN (17:11)
[2022-10-07] MEDS: ATORVASTATIN 40 MG TABLET GT SCH (21:44)
[2022-10-08] VITALS (22 sets, daily range): BP systolic 115–163; BP diastolic 56–72; TEMP 97.8–99.8; O2SAT 99–100
[2022-10-08] MEDS: IPRATROPIUM NEB FS 0.5 MG/2.5 ML AMPUL.NEB NEB SCH ×7 (00:13→23:30)
[2022-10-08] MEDS: ALBUTEROL FS 2.5 MG/3 ML VIAL.NEB NEB SCH ×7 (00:13→23:30)
[2022-10-08] MEDS ORDERED: IV NS 0.9% 250 ML IV PRN (03:00)
[2022-10-08] MEDS: IV NS 0.9% 250 ML IV PRN (03:05)
[2022-10-08 04:58] LABS: ABG BASE EXCESS -3.7 mmol/L; ABG OXYGEN SATURATION 97.5 % (92.0-98.5); ABG PCO2 27.4 mmHg (35.0-45.0); ABG PH 7.464 (7.350-7.450); ABG PO2 109.7 mmHg (75.0-100.0); ABG TOTAL HEMOGLOBIN 9.3 G/dL (12.0-16.0); COHb 0.3 % (0.5-1.5); MetHb 0.2 % (0.0-1.5); PEEP,BG 5 cm H2O; SITE, ABG Right Radial
[2022-10-08] MEDS: CARVEDILOL 6.25 MG TABLET GT SCH ×2 (08:34→20:58)
[2022-10-08] MEDS: ASPIRIN 81 MG TAB.CHEW GT SCH (08:34)
[2022-10-08] MEDS: PANTOPRAZOLE 40 MG/PACK PACK GT SCH (08:34)
[2022-10-08] MEDS: FOLIC ACID 1 MG TABLET GT SCH (08:34)
[2022-10-08] MEDS: PROSOURCE / PROSTAT (PYXIS) 30 ML UDC GT SCH (08:35)
[2022-10-08] MEDS: HYDROCORTISONE SOD SUCCINATE 100 MG/2 ML VIAL IV SCH ×2 (08:35→20:57)
[2022-10-08] MEDS: ARGININE/GLUTAMINE/CALCIUM BMB 1 EACH POWD.PACK GT SCH ×2 (08:35→17:01)
[2022-10-08] MEDS: LEVOTHYROXINE SODIUM 50 MCG TABLET GT SCH (08:37)
[2022-10-08 09:06] LABS: BASOPHILS % (AUTO) 0.1 % (0.0-2.0); HEMATOCRIT 27 % (33-45); LYMPHOCYTES # (AUTO) 0.9 K/uL (0.8-4.8); LYMPHOCYTES % (AUTO) 6.5 % (20.0-44.0); MEAN CORPUSCULAR HEMOGLOBIN 26 PG (26.0-33.0); MEAN CORPUSCULAR HGB CONC 30 g/dl (31.0-36.0); MEAN CORPUSCULAR VOLUME 88 fL (82-100); MONOCYTES # (AUTO) 0.4 K/uL (0.1-1.30); MONOCYTES % (AUTO) 2.9 % (2.0-12.0); NEUTROPHILS # (AUTO) 12.5 K/uL (1.8-8.9); NEUTROPHILS % (AUTO) 90.5 % (43.0-81.0); PLATELET COUNT (AUTO) 102 K/uL (150-450); RED BLOOD CELL COUNT(AUTO) 3.05 MIL/uL (4.0-5.2); WHITE BLOOD COUNT (AUTO) 13.8 K/uL (4.3-11.0)
[2022-10-08 09:18] LABS: CALCIUM, SERUM 8.4 mg/dL (8.5-10.1); CREATININE 0.6 mg/dL (0.6-1.3); POTASSIUM 4.2 mmol/L (3.5-5.1)
[2022-10-08] MEDS: medroxyPROGESTERone ACET 5 MG TABLET GT SCH (12:11)
[2022-10-08] MEDS: CEFEPIME 2 GM in IV D5W 100 ML IV SCH ×2 (13:00→20:59)
[2022-10-08] MEDS: ATORVASTATIN 40 MG TABLET GT SCH (21:16)
[2022-10-09] VITALS (23 sets, daily range): BP systolic 120–151; BP diastolic 57–74; TEMP 97.8–98; O2SAT 100
[2022-10-09] MEDS: IV NS 0.9% 250 ML IV PRN (03:17)
[2022-10-09] MEDS: ALBUTEROL FS 2.5 MG/3 ML VIAL.NEB NEB SCH ×6 (04:10→23:41)
[2022-10-09] MEDS: IPRATROPIUM NEB FS 0.5 MG/2.5 ML AMPUL.NEB NEB SCH ×6 (04:10→23:41)
[2022-10-09] MEDS: CEFEPIME 2 GM in IV D5W 100 ML IV SCH ×3 (04:44→21:04)
[2022-10-09 05:50] LABS: CALCIUM, SERUM 8.7 mg/dL (8.5-10.1); CREATININE 0.5 mg/dL (0.6-1.3); POTASSIUM 4.5 mmol/L (3.5-5.1)
[2022-10-09 06:02] LABS: BASOPHILS % (AUTO) 0.1 % (0.0-2.0); EOSINOPHILS % (AUTO) 0.1 % (0.0-6.0); HEMATOCRIT 26 % (33-45); HEMOGLOBIN 8.1 g/dL (11.5-14.8); LYMPHOCYTES # (AUTO) 0.8 K/uL (0.8-4.8); LYMPHOCYTES % (AUTO) 4.5 % (20.0-44.0); MEAN CORPUSCULAR HEMOGLOBIN 26 PG (26.0-33.0); MEAN CORPUSCULAR HGB CONC 31 g/dl (31.0-36.0); MEAN CORPUSCULAR VOLUME 85 fL (82-100); MONOCYTES # (AUTO) 0.3 K/uL (0.1-1.30); MONOCYTES % (AUTO) 1.6 % (2.0-12.0); NEUTROPHILS # (AUTO) 17.3 K/uL (1.8-8.9); NEUTROPHILS % (AUTO) 93.7 % (43.0-81.0); PLATELET COUNT (AUTO) 94 K/uL (150-450); RED BLOOD CELL COUNT(AUTO) 3.09 MIL/uL (4.0-5.2); RED CELL DISTRIBUTION WIDTH 19.1 % (11.5-15.0); WHITE BLOOD COUNT (AUTO) 18.5 K/uL (4.3-11.0)
[2022-10-09] MEDS: PANTOPRAZOLE 40 MG/PACK PACK GT SCH (08:40)
[2022-10-09] MEDS: FOLIC ACID 1 MG TABLET GT SCH (08:41)
[2022-10-09] MEDS: HYDROCORTISONE SOD SUCCINATE 100 MG/2 ML VIAL IV SCH ×2 (08:41→21:04)
[2022-10-09] MEDS: LEVOTHYROXINE SODIUM 50 MCG TABLET GT SCH (08:41)
[2022-10-09] MEDS: ASPIRIN 81 MG TAB.CHEW GT SCH (08:41)
[2022-10-09] MEDS: CARVEDILOL 6.25 MG TABLET GT SCH ×2 (08:41→21:04)
[2022-10-09] MEDS: PROSOURCE / PROSTAT (PYXIS) 30 ML UDC GT SCH (08:42)
[2022-10-09] MEDS: ARGININE/GLUTAMINE/CALCIUM BMB 1 EACH POWD.PACK GT SCH ×2 (08:42→17:23)
[2022-10-09 08:43] LABS: BAND % (MANUAL) 1 % (0.0-5.0); LYMPHOCYTES % (MANUAL) 3 % (16-48); NEUTROPHILS % (MANUAL) 96 (42-76); PLATELET ESTIMATE DECREASED
[2022-10-09 08:44] LABS: ANISOCYTOSIS 2+; TEAR DROP CELLS 1+
[2022-10-09] MEDS: medroxyPROGESTERone ACET 5 MG TABLET GT SCH (13:56)
[2022-10-09] MEDS: ATORVASTATIN 40 MG TABLET GT SCH (21:05)
[2022-10-10] VITALS (24 sets, daily range): BP systolic 113–158; BP diastolic 62–85; TEMP 97.2–98.9; O2SAT 98–100
[2022-10-10] MEDS: IPRATROPIUM NEB FS 0.5 MG/2.5 ML AMPUL.NEB NEB SCH ×6 (03:30→23:22)
[2022-10-10] MEDS: ALBUTEROL FS 2.5 MG/3 ML VIAL.NEB NEB SCH ×6 (03:30→23:22)
[2022-10-10 05:22] LABS: BASOPHILS % (AUTO) 0.1 % (0.0-2.0); HEMATOCRIT 25 % (33-45); HEMOGLOBIN 7.9 g/dL (11.5-14.8); LYMPHOCYTES # (AUTO) 0.8 K/uL (0.8-4.8); LYMPHOCYTES % (AUTO) 3.8 % (20.0-44.0); MEAN CORPUSCULAR HEMOGLOBIN 27 PG (26.0-33.0); MEAN CORPUSCULAR HGB CONC 32 g/dl (31.0-36.0); MEAN CORPUSCULAR VOLUME 85 fL (82-100); MONOCYTES # (AUTO) 0.3 K/uL (0.1-1.30); MONOCYTES % (AUTO) 1.5 % (2.0-12.0); NEUTROPHILS # (AUTO) 19.3 K/uL (1.8-8.9); NEUTROPHILS % (AUTO) 94.6 % (43.0-81.0); PLATELET COUNT (AUTO) 90 K/uL (150-450); RED BLOOD CELL COUNT(AUTO) 2.95 MIL/uL (4.0-5.2); RED CELL DISTRIBUTION WIDTH 19.1 % (11.5-15.0); WHITE BLOOD COUNT (AUTO) 20.4 K/uL (4.3-11.0)
[2022-10-10] MEDS: CEFEPIME 2 GM in IV D5W 100 ML IV SCH ×3 (05:28→20:52)
[2022-10-10 05:48] LABS: LYMPHOCYTES % (MANUAL) 3 % (16-48); MONOCYTES % (MANUAL) 1 % (0-11.0); NEUTROPHILS % (MANUAL) 96 (42-76); PLATELET ESTIMATE DECREASED
[2022-10-10 05:49] LABS: BILIRUBIN,TOTAL 0.3 mg/dL (0.2-1.0); CALCIUM, SERUM 8.6 mg/dL (8.5-10.1); CREATININE 0.5 mg/dL (0.6-1.3); MAGNESIUM 2.1 mg/dL (1.8-2.4); PHOSPHORUS 1.5 mg/dL (2.5-4.9); POTASSIUM 3.8 mmol/L (3.5-5.1); TOTAL PROTEIN, SERUM 5.2 g/dL (6.4-8.2)
[2022-10-10 05:57] LABS: ALBUMIN 0.9 g/dL (3.4-5.0)
[2022-10-10] MEDS: LEVOTHYROXINE SODIUM 50 MCG TABLET GT SCH (06:12)
[2022-10-10] MEDS: HYDROCORTISONE SOD SUCCINATE 100 MG/2 ML VIAL IV SCH ×2 (08:05→20:52)
[2022-10-10] MEDS: CARVEDILOL 6.25 MG TABLET GT SCH ×2 (08:05→20:53)
[2022-10-10] MEDS: FOLIC ACID 1 MG TABLET GT SCH (08:05)
[2022-10-10] MEDS: ASPIRIN 81 MG TAB.CHEW GT SCH (08:05)
[2022-10-10] MEDS: PANTOPRAZOLE 40 MG/PACK PACK GT SCH (08:06)
[2022-10-10] MEDS: PROSOURCE / PROSTAT (PYXIS) 30 ML UDC GT SCH ×3 (08:07→16:18)
[2022-10-10] MEDS: ARGININE/GLUTAMINE/CALCIUM BMB 1 EACH POWD.PACK GT SCH ×2 (08:07→16:17)
[2022-10-10] MEDS: medroxyPROGESTERone ACET 5 MG TABLET GT SCH (11:53)
[2022-10-10] MEDS ORDERED: BUMETANIDE INJ 4 MG in IV NS 0.9% 24 ML IV ONE (13:30)
[2022-10-10] MEDS ORDERED: NEUTRA PHOS 1 POWD.PACKET NG ONE (16:00)
[2022-10-10] MEDS: NEPRO 1,000 ML BOTTLE GT PRN (18:04)
[2022-10-10] MEDS: ATORVASTATIN 40 MG TABLET GT SCH (21:04)
[2022-10-11] VITALS (24 sets, daily range): BP systolic 122–169; BP diastolic 56–78; TEMP 98.3–99.3; O2SAT 98–100
[2022-10-11] MEDS: IPRATROPIUM NEB FS 0.5 MG/2.5 ML AMPUL.NEB NEB SCH ×6 (03:42→23:29)
[2022-10-11] MEDS: ALBUTEROL FS 2.5 MG/3 ML VIAL.NEB NEB SCH ×6 (03:42→23:29)
[2022-10-11 04:58] LABS: BASOPHILS % (AUTO) 0.1 % (0.0-2.0); HEMATOCRIT 23 % (33-45); HEMOGLOBIN 7.1 g/dL (11.5-14.8); LYMPHOCYTES # (AUTO) 0.8 K/uL (0.8-4.8); LYMPHOCYTES % (AUTO) 4.5 % (20.0-44.0); MEAN CORPUSCULAR HEMOGLOBIN 26 PG (26.0-33.0); MEAN CORPUSCULAR HGB CONC 31 g/dl (31.0-36.0); MEAN CORPUSCULAR VOLUME 84 fL (82-100); MONOCYTES # (AUTO) 0.3 K/uL (0.1-1.30); MONOCYTES % (AUTO) 1.7 % (2.0-12.0); NEUTROPHILS # (AUTO) 16.3 K/uL (1.8-8.9); NEUTROPHILS % (AUTO) 93.7 % (43.0-81.0); PLATELET COUNT (AUTO) 96 K/uL (150-450); RED BLOOD CELL COUNT(AUTO) 2.73 MIL/uL (4.0-5.2); RED CELL DISTRIBUTION WIDTH 18.7 % (11.5-15.0); WHITE BLOOD COUNT (AUTO) 17.4 K/uL (4.3-11.0)
[2022-10-11 05:25] LABS: BILIRUBIN,TOTAL 0.2 mg/dL (0.2-1.0); CALCIUM, SERUM 8.5 mg/dL (8.5-10.1); CREATININE 0.6 mg/dL (0.6-1.3); MAGNESIUM 1.8 mg/dL (1.8-2.4); PHOSPHORUS 1.5 mg/dL (2.5-4.9); POTASSIUM 2.9 mmol/L (3.5-5.1); TOTAL PROTEIN, SERUM 5.2 g/dL (6.4-8.2)
[2022-10-11] MEDS: CEFEPIME 2 GM in IV D5W 100 ML IV SCH ×3 (05:34→21:07)
[2022-10-11] MEDS: LEVOTHYROXINE SODIUM 50 MCG TABLET GT SCH (06:06)
[2022-10-11 07:46] LABS: ABG BASE EXCESS -1.4 mmol/L; ABG OXYGEN SATURATION 98.4 % (92.0-98.5); ABG PCO2 29.2 mmHg (35.0-45.0); ABG PH 7.486 (7.350-7.450); ABG PO2 142.2 mmHg (75.0-100.0); ABG TOTAL HEMOGLOBIN 8.5 G/dL (12.0-16.0); AaDO2 109.4 mmHg; COHb 0.3 % (0.5-1.5); MetHb 0.7 % (0.0-1.5); O2Hb 97.4 % (94.0-97.0); SITE, ABG Right Radial
[2022-10-11] MEDS: HYDROCORTISONE SOD SUCCINATE 100 MG/2 ML VIAL IV SCH ×2 (08:18→21:07)
[2022-10-11] MEDS: FOLIC ACID 1 MG TABLET GT SCH (08:18)
[2022-10-11] MEDS: PROSOURCE / PROSTAT (PYXIS) 30 ML UDC GT SCH ×2 (08:18→16:08)
[2022-10-11] MEDS: PANTOPRAZOLE 40 MG/PACK PACK GT SCH (08:18)
[2022-10-11] MEDS: ASPIRIN 81 MG TAB.CHEW GT SCH (08:18)
[2022-10-11] MEDS: CARVEDILOL 6.25 MG TABLET GT SCH ×2 (08:19→21:07)
[2022-10-11] MEDS: ARGININE/GLUTAMINE/CALCIUM BMB 1 EACH POWD.PACK GT SCH ×2 (08:20→16:08)
[2022-10-11] MEDS: POTASSIUM CHLORIDE 20 MEQ POWDER PACKET NG SCH ×3 (09:56→12:23)
[2022-10-11] MEDS: medroxyPROGESTERone ACET 5 MG TABLET GT SCH (12:23)
[2022-10-11] MEDS: NEPRO 1,000 ML BOTTLE GT PRN (14:30)
[2022-10-11] MEDS ORDERED: NEUTRA PHOS 1 POWD.PACKET NG ONE (16:00)
[2022-10-11] MEDS: ATORVASTATIN 40 MG TABLET GT SCH (21:07)
[2022-10-11] MEDS: ACETAMINOPHEN 650 MG/20.3 ML UDC GT PRN (23:28)
[2022-10-12] VITALS (24 sets, daily range): BP systolic 140–173; BP diastolic 55–90; TEMP 97.9–99.4; O2SAT 98–100
[2022-10-12] MEDS: ALBUTEROL FS 2.5 MG/3 ML VIAL.NEB NEB SCH ×6 (03:36→23:17)
[2022-10-12] MEDS: IPRATROPIUM NEB FS 0.5 MG/2.5 ML AMPUL.NEB NEB SCH ×6 (03:36→23:17)
[2022-10-12 05:04] LABS: BASOPHILS % (AUTO) 0.1 % (0.0-2.0); HEMATOCRIT 24 % (33-45); HEMOGLOBIN 7.5 g/dL (11.5-14.8); LYMPHOCYTES # (AUTO) 0.6 K/uL (0.8-4.8); LYMPHOCYTES % (AUTO) 3.9 % (20.0-44.0); MEAN CORPUSCULAR HEMOGLOBIN 27 PG (26.0-33.0); MEAN CORPUSCULAR HGB CONC 32 g/dl (31.0-36.0); MEAN CORPUSCULAR VOLUME 85 fL (82-100); MONOCYTES # (AUTO) 0.3 K/uL (0.1-1.30); MONOCYTES % (AUTO) 2.2 % (2.0-12.0); NEUTROPHILS # (AUTO) 14.3 K/uL (1.8-8.9); NEUTROPHILS % (AUTO) 93.8 % (43.0-81.0); PLATELET COUNT (AUTO) 102 K/uL (150-450); RED BLOOD CELL COUNT(AUTO) 2.79 MIL/uL (4.0-5.2); WHITE BLOOD COUNT (AUTO) 15.2 K/uL (4.3-11.0)
[2022-10-12] MEDS: CEFEPIME 2 GM in IV D5W 100 ML IV SCH ×3 (05:33→21:36)
[2022-10-12 05:34] LABS: CALCIUM, SERUM 8.6 mg/dL (8.5-10.1); CREATININE 0.6 mg/dL (0.6-1.3); PHOSPHORUS 1.3 mg/dL (2.5-4.9); POTASSIUM 3.7 mmol/L (3.5-5.1)
[2022-10-12] MEDS: LEVOTHYROXINE SODIUM 50 MCG TABLET GT SCH (06:03)
[2022-10-12] MEDS: PANTOPRAZOLE 40 MG/PACK PACK GT SCH (09:03)
[2022-10-12] MEDS: HYDROCORTISONE SOD SUCCINATE 100 MG/2 ML VIAL IV SCH ×2 (09:04→21:33)
[2022-10-12] MEDS: FOLIC ACID 1 MG TABLET GT SCH (09:04)
[2022-10-12] MEDS: CARVEDILOL 6.25 MG TABLET GT SCH ×2 (09:04→21:35)
[2022-10-12] MEDS: ARGININE/GLUTAMINE/CALCIUM BMB 1 EACH POWD.PACK GT SCH ×2 (09:07→16:12)
[2022-10-12] MEDS: PROSOURCE / PROSTAT (PYXIS) 30 ML UDC GT SCH ×2 (09:07→16:12)
[2022-10-12] MEDS: medroxyPROGESTERone ACET 5 MG TABLET GT SCH (11:41)
[2022-10-12] MEDS ORDERED: NEUTRA PHOS 1 POWD.PACKET PO ONE (16:00)
[2022-10-12] MEDS: NEPRO 1,000 ML BOTTLE GT PRN (16:13)
[2022-10-12] MEDS: ATORVASTATIN 40 MG TABLET GT SCH (21:35)
[2022-10-13] VITALS (24 sets, daily range): BP systolic 124–168; BP diastolic 54–81; TEMP 97.6–98.6; O2SAT 100
[2022-10-13] MEDS: IPRATROPIUM NEB FS 0.5 MG/2.5 ML AMPUL.NEB NEB SCH ×6 (03:20→23:32)
[2022-10-13] MEDS: ALBUTEROL FS 2.5 MG/3 ML VIAL.NEB NEB SCH ×6 (03:20→23:32)
[2022-10-13 04:16] LABS: BASOPHILS % (AUTO) 0.1 % (0.0-2.0); HEMATOCRIT 26 % (33-45); HEMOGLOBIN 7.9 g/dL (11.5-14.8); LYMPHOCYTES # (AUTO) 0.7 K/uL (0.8-4.8); LYMPHOCYTES % (AUTO) 3.7 % (20.0-44.0); MEAN CORPUSCULAR HEMOGLOBIN 28 PG (26.0-33.0); MEAN CORPUSCULAR HGB CONC 31 g/dl (31.0-36.0); MEAN CORPUSCULAR VOLUME 89 fL (82-100); MONOCYTES # (AUTO) 0.6 K/uL (0.1-1.30); MONOCYTES % (AUTO) 3.3 % (2.0-12.0); NEUTROPHILS # (AUTO) 17.2 K/uL (1.8-8.9); NEUTROPHILS % (AUTO) 92.9 % (43.0-81.0); PLATELET COUNT (AUTO) 115 K/uL (150-450); RED BLOOD CELL COUNT(AUTO) 2.89 MIL/uL (4.0-5.2); RED CELL DISTRIBUTION WIDTH 20.2 % (11.5-15.0); WHITE BLOOD COUNT (AUTO) 18.5 K/uL (4.3-11.0)
[2022-10-13 04:43] LABS: CALCIUM, SERUM 8.8 mg/dL (8.5-10.1); CREATININE 0.6 mg/dL (0.6-1.3); PHOSPHORUS 1.3 mg/dL (2.5-4.9); POTASSIUM 3.7 mmol/L (3.5-5.1)
[2022-10-13] MEDS: CEFEPIME 2 GM in IV D5W 100 ML IV SCH ×3 (06:00→21:01)
[2022-10-13] MEDS: IV NS 0.9% 250 ML IV PRN (06:07)
[2022-10-13] MEDS: LEVOTHYROXINE SODIUM 50 MCG TABLET GT SCH (06:15)
[2022-10-13] MEDS: PANTOPRAZOLE 40 MG/PACK PACK GT SCH (08:33)
[2022-10-13] MEDS: FOLIC ACID 1 MG TABLET GT SCH (08:34)
[2022-10-13] MEDS: HYDROCORTISONE SOD SUCCINATE 100 MG/2 ML VIAL IV SCH ×2 (08:34→21:00)
[2022-10-13] MEDS: CARVEDILOL 6.25 MG TABLET GT SCH ×2 (08:34→21:00)
[2022-10-13] MEDS: PROSOURCE / PROSTAT (PYXIS) 30 ML UDC GT SCH ×2 (08:36→17:15)
[2022-10-13] MEDS: ARGININE/GLUTAMINE/CALCIUM BMB 1 EACH POWD.PACK GT SCH ×2 (08:36→17:15)
[2022-10-13] MEDS: medroxyPROGESTERone ACET 5 MG TABLET GT SCH (11:52)
[2022-10-13] MEDS ORDERED: BLOOD SUGAR DIAGNOSTIC 1 EACH STRIP IN SCH (12:00)
[2022-10-13] MEDS ORDERED: DEXTROSE 50%-WATER 50 ML DISP.SYRIN IV PRN (12:00)
[2022-10-13] MEDS: INSULIN REGULAR, HUMAN 100 UNIT/ML 3 ML VIAL SQ PRN ×2 (13:00→17:31)
[2022-10-13] MEDS: BLOOD SUGAR DIAGNOSTIC 1 EACH STRIP IN SCH ×2 (13:02→17:31)
[2022-10-13] MEDS ORDERED: ROCURONIUM BROMIDE 50 MG/5 ML IV ONE ×2 (14:00→17:36)
[2022-10-13] MEDS ORDERED: ETOMIDATE 2 MG/ML VIAL IV ONE ×2 (14:00→17:36)
[2022-10-13] MEDS ORDERED: LIDOCAINE HCL/MPF 1% 30 ML VIAL IJ ONE (15:19)
[2022-10-13] MEDS ORDERED: PROPOFOL 200 MG/20 ML VIAL IV ONE ×2 (16:30→17:36)
[2022-10-13] MEDS ORDERED: NEUTRA PHOS 1 POWD.PACKET GT ONE (17:00)
[2022-10-13] MEDS: ATORVASTATIN 40 MG TABLET GT SCH (21:00)
[2022-10-14] VITALS (16 sets, daily range): BP systolic 129–168; BP diastolic 60–134; TEMP 98–98.9; O2SAT 100
[2022-10-14] MEDS: BLOOD SUGAR DIAGNOSTIC 1 EACH STRIP IN SCH ×5 (01:02→23:27)
[2022-10-14] MEDS: INSULIN REGULAR, HUMAN 100 UNIT/ML 3 ML VIAL SQ PRN ×4 (01:03→23:52)
[2022-10-14] MEDS: ALBUTEROL FS 2.5 MG/3 ML VIAL.NEB NEB SCH ×6 (03:42→23:31)
[2022-10-14] MEDS: IPRATROPIUM NEB FS 0.5 MG/2.5 ML AMPUL.NEB NEB SCH ×6 (03:42→23:31)
[2022-10-14 04:35] LABS: BASOPHILS % (AUTO) 0.1 % (0.0-2.0); HEMATOCRIT 25 % (33-45); HEMOGLOBIN 7.7 g/dL (11.5-14.8); LYMPHOCYTES # (AUTO) 0.7 K/uL (0.8-4.8); LYMPHOCYTES % (AUTO) 4.7 % (20.0-44.0); MEAN CORPUSCULAR HEMOGLOBIN 27 PG (26.0-33.0); MEAN CORPUSCULAR HGB CONC 30 g/dl (31.0-36.0); MEAN CORPUSCULAR VOLUME 88 fL (82-100); MONOCYTES # (AUTO) 0.5 K/uL (0.1-1.30); NEUTROPHILS # (AUTO) 14.6 K/uL (1.8-8.9); NEUTROPHILS % (AUTO) 92.2 % (43.0-81.0); PLATELET COUNT (AUTO) 101 K/uL (150-450); RED BLOOD CELL COUNT(AUTO) 2.89 MIL/uL (4.0-5.2); RED CELL DISTRIBUTION WIDTH 20.3 % (11.5-15.0); WHITE BLOOD COUNT (AUTO) 15.9 K/uL (4.3-11.0)
[2022-10-14 04:45] LABS: CALCIUM, SERUM 8.6 mg/dL (8.5-10.1); CREATININE 0.6 mg/dL (0.6-1.3); PHOSPHORUS 1.4 mg/dL (2.5-4.9); POTASSIUM 3.6 mmol/L (3.5-5.1)
[2022-10-14] MEDS: NEPRO 1,000 ML BOTTLE GT PRN (08:27)
[2022-10-14] MEDS: PROSOURCE / PROSTAT (PYXIS) 30 ML UDC GT SCH ×2 (08:28→18:01)
[2022-10-14] MEDS: ARGININE/GLUTAMINE/CALCIUM BMB 1 EACH POWD.PACK GT SCH ×2 (08:28→18:00)
[2022-10-14] MEDS: HYDROCORTISONE SOD SUCCINATE 100 MG/2 ML VIAL IV SCH ×2 (08:36→21:08)
[2022-10-14] MEDS: PANTOPRAZOLE 40 MG/PACK PACK GT SCH (08:36)
[2022-10-14] MEDS: LEVOTHYROXINE SODIUM 50 MCG TABLET GT SCH (08:36)
[2022-10-14] MEDS: FOLIC ACID 1 MG TABLET GT SCH (08:36)
[2022-10-14] MEDS: CARVEDILOL 6.25 MG TABLET GT SCH ×2 (08:37→21:08)
[2022-10-14] MEDS: medroxyPROGESTERone ACET 5 MG TABLET GT SCH (12:45)
[2022-10-14] MEDS ORDERED: NEUTRA PHOS 1 POWD.PACKET GT ONE (15:30)
[2022-10-14] MEDS: ACETAMINOPHEN 650 MG/20.3 ML UDC GT PRN (18:01)
[2022-10-14] MEDS: ATORVASTATIN 40 MG TABLET GT SCH (21:07)
[2022-10-15] VITALS: BP 150/68; TEMP 98; O2SAT 100
[2022-10-15] MEDS: ALBUTEROL FS 2.5 MG/3 ML VIAL.NEB NEB SCH ×6 (02:48→23:31)
[2022-10-15] MEDS: IPRATROPIUM NEB FS 0.5 MG/2.5 ML AMPUL.NEB NEB SCH ×6 (02:48→23:31)
[2022-10-15 04:00] VITALS: BP 169/74; TEMP 98.4; O2SAT 100
[2022-10-15 04:27] LABS: ABG BASE EXCESS -2.7 mmol/L; ABG OXYGEN SATURATION 98.6 % (92.0-98.5); ABG PCO2 28.4 mmHg (35.0-45.0); ABG PH 7.473 (7.350-7.450); ABG PO2 129.1 mmHg (75.0-100.0); ABG TOTAL HEMOGLOBIN 8.3 G/dL (12.0-16.0); AaDO2 123.4 mmHg; COHb 0.1 % (0.5-1.5); MetHb 0.4 % (0.0-1.5); O2Hb 98.1 % (94.0-97.0); PEEP,BG 5 cm H2O; SITE, ABG Right Radial; VT, ABG 450 mL
[2022-10-15] MEDS: BLOOD SUGAR DIAGNOSTIC 1 EACH STRIP IN SCH ×3 (05:38→17:41)
[2022-10-15] MEDS: LEVOTHYROXINE SODIUM 50 MCG TABLET GT SCH (06:00)
[2022-10-15] MEDS: INSULIN REGULAR, HUMAN 100 UNIT/ML 3 ML VIAL SQ PRN ×3 (06:03→17:41)
[2022-10-15 07:18] LABS: BASOPHILS % (AUTO) 0.1 % (0.0-2.0); HEMATOCRIT 24 % (33-45); HEMOGLOBIN 7.6 g/dL (11.5-14.8); LYMPHOCYTES # (AUTO) 0.7 K/uL (0.8-4.8); LYMPHOCYTES % (AUTO) 5.2 % (20.0-44.0); MEAN CORPUSCULAR HEMOGLOBIN 27 PG (26.0-33.0); MEAN CORPUSCULAR HGB CONC 31 g/dl (31.0-36.0); MEAN CORPUSCULAR VOLUME 85 fL (82-100); MONOCYTES # (AUTO) 0.5 K/uL (0.1-1.30); MONOCYTES % (AUTO) 3.3 % (2.0-12.0); NEUTROPHILS # (AUTO) 12.6 K/uL (1.8-8.9); NEUTROPHILS % (AUTO) 91.4 % (43.0-81.0); PLATELET COUNT (AUTO) 106 K/uL (150-450); RED BLOOD CELL COUNT(AUTO) 2.86 MIL/uL (4.0-5.2); RED CELL DISTRIBUTION WIDTH 20.4 % (11.5-15.0); WHITE BLOOD COUNT (AUTO) 13.8 K/uL (4.3-11.0)
[2022-10-15 07:50] LABS: CALCIUM, SERUM 8.9 mg/dL (8.5-10.1); CREATININE 0.6 mg/dL (0.6-1.3); PHOSPHORUS 1.2 mg/dL (2.5-4.9); POTASSIUM 3.1 mmol/L (3.5-5.1)
[2022-10-15 08:00] VITALS: BP 141/75; TEMP 98.3; O2SAT 100
[2022-10-15] MEDS: PANTOPRAZOLE 40 MG/PACK PACK GT SCH (08:17)
[2022-10-15] MEDS: FOLIC ACID 1 MG TABLET GT SCH (08:17)
[2022-10-15] MEDS: HYDROCORTISONE SOD SUCCINATE 100 MG/2 ML VIAL IV SCH ×2 (08:18→21:17)
[2022-10-15] MEDS: NEPRO 1,000 ML BOTTLE GT PRN (08:18)
[2022-10-15] MEDS: ARGININE/GLUTAMINE/CALCIUM BMB 1 EACH POWD.PACK GT SCH ×2 (08:18→17:02)
[2022-10-15] MEDS: PROSOURCE / PROSTAT (PYXIS) 30 ML UDC GT SCH ×2 (08:27→17:02)
[2022-10-15] MEDS: CARVEDILOL 6.25 MG TABLET GT SCH ×2 (08:35→21:17)
[2022-10-15] MEDS ORDERED: POTASSIUM CHLORIDE 20 MEQ POWDER PACKET NG SCH (10:00)
[2022-10-15 12:00] VITALS: BP 163/71; TEMP 98.7; O2SAT 100
[2022-10-15] MEDS ORDERED: MORPHINE SULFATE SOLN CONCENTRATED 20 MG/ML PO PRN (13:00)
[2022-10-15] MEDS: medroxyPROGESTERone ACET 5 MG TABLET GT SCH (14:04)
[2022-10-15] MEDS: IV D5W 1,000 ML IV SCH (15:33)
[2022-10-15 16:00] VITALS: BP 159/77; TEMP 98.9; O2SAT 100
[2022-10-15] MEDS ORDERED: NEUTRA PHOS 1 POWD.PACKET NG ONE (16:00)
[2022-10-15 20:00] VITALS: BP 171/77; TEMP 98.7; O2SAT 100
[2022-10-15] MEDS: ATORVASTATIN 40 MG TABLET GT SCH (21:17)
[2022-10-16] VITALS: BP 169/78; TEMP 98.3; O2SAT 100
[2022-10-16] MEDS: BLOOD SUGAR DIAGNOSTIC 1 EACH STRIP IN SCH ×4 (00:18→17:38)
[2022-10-16] MEDS: INSULIN REGULAR, HUMAN 100 UNIT/ML 3 ML VIAL SQ PRN ×4 (00:21→17:41)
[2022-10-16] MEDS: IV D5W 1,000 ML IV SCH (01:29)
[2022-10-16] MEDS: IPRATROPIUM NEB FS 0.5 MG/2.5 ML AMPUL.NEB NEB SCH ×6 (03:52→23:35)
[2022-10-16] MEDS: ALBUTEROL FS 2.5 MG/3 ML VIAL.NEB NEB SCH ×6 (03:52→23:35)
[2022-10-16 04:00] VITALS: BP 159/78; TEMP 98; O2SAT 98
[2022-10-16 07:26] LABS: BASOPHILS % (AUTO) 0.1 % (0.0-2.0); HEMATOCRIT 24 % (33-45); HEMOGLOBIN 7.6 g/dL (11.5-14.8); LYMPHOCYTES # (AUTO) 0.8 K/uL (0.8-4.8); LYMPHOCYTES % (AUTO) 6.3 % (20.0-44.0); MEAN CORPUSCULAR HEMOGLOBIN 27 PG (26.0-33.0); MEAN CORPUSCULAR HGB CONC 31 g/dl (31.0-36.0); MEAN CORPUSCULAR VOLUME 87 fL (82-100); MONOCYTES # (AUTO) 0.5 K/uL (0.1-1.30); MONOCYTES % (AUTO) 3.5 % (2.0-12.0); NEUTROPHILS # (AUTO) 12.1 K/uL (1.8-8.9); NEUTROPHILS % (AUTO) 90.1 % (43.0-81.0); PLATELET COUNT (AUTO) 100 K/uL (150-450); RED BLOOD CELL COUNT(AUTO) 2.82 MIL/uL (4.0-5.2); WHITE BLOOD COUNT (AUTO) 13.4 K/uL (4.3-11.0)
[2022-10-16 07:58] LABS: CALCIUM, SERUM 8.8 mg/dL (8.5-10.1); CREATININE 0.6 mg/dL (0.6-1.3); PHOSPHORUS 1.3 mg/dL (2.5-4.9); POTASSIUM 3.4 mmol/L (3.5-5.1)
[2022-10-16 08:00] VITALS: BP_SYST 102; BP_SYST 160; BP_DIAS 60; BP_DIAS 73; TEMP 98; O2SAT 100; O2SAT 98
[2022-10-16] MEDS: PROSOURCE / PROSTAT (PYXIS) 30 ML UDC GT SCH ×2 (08:43→16:14)
[2022-10-16] MEDS: ARGININE/GLUTAMINE/CALCIUM BMB 1 EACH POWD.PACK GT SCH ×2 (08:43→16:14)
[2022-10-16] MEDS: FOLIC ACID 1 MG TABLET GT SCH (08:46)
[2022-10-16] MEDS: CARVEDILOL 6.25 MG TABLET GT SCH ×2 (08:46→21:26)
[2022-10-16] MEDS: PANTOPRAZOLE 40 MG/PACK PACK GT SCH (08:47)
[2022-10-16] MEDS: LEVOTHYROXINE SODIUM 50 MCG TABLET GT SCH (08:47)
[2022-10-16] MEDS: HYDROCORTISONE SOD SUCCINATE 100 MG/2 ML VIAL IV SCH ×2 (08:48→21:25)
[2022-10-16] MEDS ORDERED: POTASSIUM CHLORIDE 20 MEQ POWDER PACKET NG ONE (11:00)
[2022-10-16 12:00] VITALS: BP 140/64; TEMP 98.1; O2SAT 100
[2022-10-16] MEDS: medroxyPROGESTERone ACET 5 MG TABLET GT SCH (13:20)
[2022-10-16 16:00] VITALS: BP 156/70; TEMP 98.8; O2SAT 100
[2022-10-16] MEDS ORDERED: NEUTRA PHOS 1 POWD.PACKET NG ONE (16:00)
[2022-10-16] MEDS: NEPRO 1,000 ML BOTTLE GT PRN (18:20)
[2022-10-16 20:00] VITALS: BP 164/60; TEMP 98.6; O2SAT 99
[2022-10-16] MEDS: ATORVASTATIN 40 MG TABLET GT SCH (21:25)
[2022-10-17] VITALS: BP 160/52; TEMP 98.2; O2SAT 99
[2022-10-17] MEDS: BLOOD SUGAR DIAGNOSTIC 1 EACH STRIP IN SCH ×5 (00:23→23:39)
[2022-10-17] MEDS: INSULIN REGULAR, HUMAN 100 UNIT/ML 3 ML VIAL SQ PRN ×5 (00:24→23:40)
[2022-10-17 04:00] VITALS: BP 158/75; TEMP 98.2; O2SAT 99
[2022-10-17] MEDS: IPRATROPIUM NEB FS 0.5 MG/2.5 ML AMPUL.NEB NEB SCH ×5 (04:10→19:53)
[2022-10-17] MEDS: ALBUTEROL FS 2.5 MG/3 ML VIAL.NEB NEB SCH ×5 (04:10→19:53)
[2022-10-17 07:25] LABS: BASOPHILS % (AUTO) 0.1 % (0.0-2.0); HEMATOCRIT 24 % (33-45); HEMOGLOBIN 7.6 g/dL (11.5-14.8); LYMPHOCYTES # (AUTO) 0.9 K/uL (0.8-4.8); LYMPHOCYTES % (AUTO) 6.9 % (20.0-44.0); MEAN CORPUSCULAR HEMOGLOBIN 27 PG (26.0-33.0); MEAN CORPUSCULAR HGB CONC 32 g/dl (31.0-36.0); MEAN CORPUSCULAR VOLUME 85 fL (82-100); MONOCYTES # (AUTO) 0.4 K/uL (0.1-1.30); MONOCYTES % (AUTO) 3.5 % (2.0-12.0); NEUTROPHILS # (AUTO) 11.5 K/uL (1.8-8.9); NEUTROPHILS % (AUTO) 89.5 % (43.0-81.0); PLATELET COUNT (AUTO) 108 K/uL (150-450); RED BLOOD CELL COUNT(AUTO) 2.85 MIL/uL (4.0-5.2); RED CELL DISTRIBUTION WIDTH 21.2 % (11.5-15.0); WHITE BLOOD COUNT (AUTO) 12.9 K/uL (4.3-11.0)
[2022-10-17] MEDS: LEVOTHYROXINE SODIUM 50 MCG TABLET GT SCH (07:50)
[2022-10-17 08:00] VITALS: BP 158/68; TEMP 98.2; O2SAT 99
[2022-10-17 08:10] LABS: CALCIUM, SERUM 8.9 mg/dL (8.5-10.1); CREATININE 0.5 mg/dL (0.6-1.3); PHOSPHORUS 1.3 mg/dL (2.5-4.9); POTASSIUM 3.6 mmol/L (3.5-5.1)
[2022-10-17] MEDS: ARGININE/GLUTAMINE/CALCIUM BMB 1 EACH POWD.PACK GT SCH ×2 (08:21→16:35)
[2022-10-17] MEDS: FOLIC ACID 1 MG TABLET GT SCH (08:21)
[2022-10-17] MEDS: PROSOURCE / PROSTAT (PYXIS) 30 ML UDC GT SCH ×2 (08:21→15:50)
[2022-10-17] MEDS: PANTOPRAZOLE 40 MG/PACK PACK GT SCH (08:22)
[2022-10-17] MEDS: HYDROCORTISONE SOD SUCCINATE 100 MG/2 ML VIAL IV SCH ×2 (08:47→21:05)
[2022-10-17] MEDS: CARVEDILOL 6.25 MG TABLET GT SCH ×2 (08:49→21:05)
[2022-10-17 12:00] VITALS: BP 169/56; TEMP 98.3; O2SAT 99
[2022-10-17] MEDS ORDERED: NEUTRA PHOS 1 POWD.PACKET NG ONE (13:30)
[2022-10-17] MEDS: medroxyPROGESTERone ACET 5 MG TABLET GT SCH (14:39)
[2022-10-17 16:00] VITALS: BP 139/77; TEMP 98.1; O2SAT 98
[2022-10-17 20:00] VITALS: BP 160/70; TEMP 98.4; O2SAT 98
[2022-10-17] MEDS: ATORVASTATIN 40 MG TABLET GT SCH (21:05)
[2022-10-17] MEDS: ACETAMINOPHEN 650 MG/20.3 ML UDC GT PRN (21:17)
[2022-10-18] VITALS: BP 140/69; TEMP 98; O2SAT 98
[2022-10-18] MEDS: IPRATROPIUM NEB FS 0.5 MG/2.5 ML AMPUL.NEB NEB SCH ×6 (00:05→19:43)
[2022-10-18] MEDS: ALBUTEROL FS 2.5 MG/3 ML VIAL.NEB NEB SCH ×6 (00:05→19:43)
[2022-10-18 04:00] VITALS: BP 150/70; TEMP 98; O2SAT 98
[2022-10-18] MEDS: NEPRO 1,000 ML BOTTLE GT PRN (04:23)
[2022-10-18] MEDS: BLOOD SUGAR DIAGNOSTIC 1 EACH STRIP IN SCH ×4 (06:06→23:56)
[2022-10-18 07:14] LABS: BASOPHILS % (AUTO) 0.1 % (0.0-2.0); EOSINOPHILS % (AUTO) 0.1 % (0.0-6.0); HEMATOCRIT 23 % (33-45); HEMOGLOBIN 7.1 g/dL (11.5-14.8); LYMPHOCYTES # (AUTO) 0.6 K/uL (0.8-4.8); LYMPHOCYTES % (AUTO) 5.9 % (20.0-44.0); MEAN CORPUSCULAR HEMOGLOBIN 27 PG (26.0-33.0); MEAN CORPUSCULAR HGB CONC 31 g/dl (31.0-36.0); MEAN CORPUSCULAR VOLUME 86 fL (82-100); MONOCYTES # (AUTO) 0.4 K/uL (0.1-1.30); MONOCYTES % (AUTO) 3.6 % (2.0-12.0); NEUTROPHILS % (AUTO) 90.3 % (43.0-81.0); PLATELET COUNT (AUTO) 101 K/uL (150-450); RED BLOOD CELL COUNT(AUTO) 2.65 MIL/uL (4.0-5.2); RED CELL DISTRIBUTION WIDTH 21.6 % (11.5-15.0)
[2022-10-18] MEDS: LEVOTHYROXINE SODIUM 50 MCG TABLET GT SCH (07:15)
[2022-10-18 07:23] LABS: CALCIUM, SERUM 8.8 mg/dL (8.5-10.1); CREATININE 0.5 mg/dL (0.6-1.3); PHOSPHORUS 1.8 mg/dL (2.5-4.9); POTASSIUM 3.9 mmol/L (3.5-5.1)
[2022-10-18 08:00] VITALS: BP 152/72; TEMP 99; O2SAT 98
[2022-10-18] MEDS: CARVEDILOL 6.25 MG TABLET GT SCH ×2 (08:48→21:45)
[2022-10-18] MEDS: PANTOPRAZOLE 40 MG/PACK PACK GT SCH (08:48)
[2022-10-18] MEDS: PROSOURCE / PROSTAT (PYXIS) 30 ML UDC GT SCH (08:49)
[2022-10-18] MEDS: HYDROCORTISONE SOD SUCCINATE 100 MG/2 ML VIAL IV SCH ×2 (08:49→17:13)
[2022-10-18] MEDS: FOLIC ACID 1 MG TABLET GT SCH (08:49)
[2022-10-18] MEDS: ARGININE/GLUTAMINE/CALCIUM BMB 1 EACH POWD.PACK GT SCH ×2 (08:50→16:55)
[2022-10-18 12:00] VITALS: BP 150/70; TEMP 99.6; O2SAT 98
[2022-10-18] MEDS: medroxyPROGESTERone ACET 5 MG TABLET GT SCH (12:35)
[2022-10-18 16:00] VITALS: BP 145/70; TEMP 99.2; O2SAT 98
[2022-10-18] MEDS ORDERED: Sodium Phosphate 15 MMOL in IV NS 0.9% 245 ML IV SCH (16:00)
[2022-10-18] MEDS: ATORVASTATIN 40 MG TABLET GT SCH (21:34)
[2022-10-18] MEDS: ACETAMINOPHEN 650 MG/20.3 ML UDC GT PRN (21:55)
[2022-10-18 22:33] VITALS: BP 167/77; TEMP 98.6; O2SAT 100
[2022-10-19] VITALS: BP 136/62; TEMP 97.8; O2SAT 100
[2022-10-19] MEDS: ALBUTEROL FS 2.5 MG/3 ML VIAL.NEB NEB SCH ×7 (01:14→23:52)
[2022-10-19] MEDS: IPRATROPIUM NEB FS 0.5 MG/2.5 ML AMPUL.NEB NEB SCH ×7 (01:14→23:52)
[2022-10-19 04:00] VITALS: BP 147/74; TEMP 98.3; O2SAT 100
[2022-10-19] MEDS: BLOOD SUGAR DIAGNOSTIC 1 EACH STRIP IN SCH ×3 (05:52→17:04)
[2022-10-19] MEDS: NEPRO 1,000 ML BOTTLE GT PRN (06:30)
[2022-10-19 06:56] LABS: BASOPHILS % (AUTO) 0.1 % (0.0-2.0); EOSINOPHILS % (AUTO) 0.1 % (0.0-6.0); HEMATOCRIT 25 % (33-45); HEMOGLOBIN 7.5 g/dL (11.5-14.8); LYMPHOCYTES # (AUTO) 1.3 K/uL (0.8-4.8); MEAN CORPUSCULAR HEMOGLOBIN 27 PG (26.0-33.0); MEAN CORPUSCULAR HGB CONC 30 g/dl (31.0-36.0); MEAN CORPUSCULAR VOLUME 90 fL (82-100); MONOCYTES # (AUTO) 0.4 K/uL (0.1-1.30); MONOCYTES % (AUTO) 3.6 % (2.0-12.0); NEUTROPHILS # (AUTO) 9.8 K/uL (1.8-8.9); NEUTROPHILS % (AUTO) 85.2 % (43.0-81.0); PLATELET COUNT (AUTO) 102 K/uL (150-450); RED BLOOD CELL COUNT(AUTO) 2.76 MIL/uL (4.0-5.2); RED CELL DISTRIBUTION WIDTH 22.6 % (11.5-15.0); WHITE BLOOD COUNT (AUTO) 11.5 K/uL (4.3-11.0)
[2022-10-19 07:08] LABS: CALCIUM, SERUM 8.9 mg/dL (8.5-10.1); CREATININE 0.7 mg/dL (0.6-1.3); MAGNESIUM 2.2 mg/dL (1.8-2.4); PHOSPHORUS 3.1 mg/dL (2.5-4.9)
[2022-10-19] MEDS: LEVOTHYROXINE SODIUM 50 MCG TABLET GT SCH (07:22)
[2022-10-19 08:00] VITALS: BP 156/72; TEMP 97.4; O2SAT 100
[2022-10-19] MEDS: PANTOPRAZOLE 40 MG/PACK PACK GT SCH (08:44)
[2022-10-19] MEDS: ARGININE/GLUTAMINE/CALCIUM BMB 1 EACH POWD.PACK GT SCH ×2 (08:44→16:08)
[2022-10-19] MEDS: CARVEDILOL 6.25 MG TABLET GT SCH ×2 (08:44→21:15)
[2022-10-19] MEDS: HYDROCORTISONE SOD SUCCINATE 100 MG/2 ML VIAL IV SCH (08:44)
[2022-10-19] MEDS: PROSOURCE / PROSTAT (PYXIS) 30 ML UDC GT SCH (08:44)
[2022-10-19] MEDS: FOLIC ACID 1 MG TABLET GT SCH (08:44)
[2022-10-19] MEDS ORDERED: MORPHINE SULFATE SOLN CONCENTRATED 20 MG/ML GT PRN (11:32)
[2022-10-19] MEDS: medroxyPROGESTERone ACET 5 MG TABLET GT SCH (11:37)
[2022-10-19] MEDS: INSULIN REGULAR, HUMAN 100 UNIT/ML 3 ML VIAL SQ PRN ×2 (15:55→17:12)
[2022-10-19 20:00] VITALS: BP 154/65; TEMP 98.4; O2SAT 100
[2022-10-19] MEDS: ATORVASTATIN 40 MG TABLET GT SCH (21:14)
[2022-10-20] MEDS: BLOOD SUGAR DIAGNOSTIC 1 EACH STRIP IN SCH ×4 (00:52→17:00)
[2022-10-20] MEDS: INSULIN REGULAR, HUMAN 100 UNIT/ML 3 ML VIAL SQ PRN ×4 (00:54→17:01)
[2022-10-20 04:00] VITALS: BP 153/61; TEMP 98.3; O2SAT 100
[2022-10-20] MEDS: ALBUTEROL FS 2.5 MG/3 ML VIAL.NEB NEB SCH ×6 (04:16→22:55)
[2022-10-20] MEDS: IPRATROPIUM NEB FS 0.5 MG/2.5 ML AMPUL.NEB NEB SCH ×6 (04:16→22:55)
[2022-10-20] MEDS: LEVOTHYROXINE SODIUM 50 MCG TABLET GT SCH (07:00)
[2022-10-20] MEDS: ARGININE/GLUTAMINE/CALCIUM BMB 1 EACH POWD.PACK GT SCH ×2 (08:33→16:13)
[2022-10-20] MEDS: PROSOURCE / PROSTAT (PYXIS) 30 ML UDC GT SCH (08:33)
[2022-10-20] MEDS: HYDROCORTISONE SOD SUCCINATE 100 MG/2 ML VIAL IV SCH (08:37)
[2022-10-20] MEDS: PANTOPRAZOLE 40 MG/PACK PACK GT SCH (08:37)
[2022-10-20] MEDS: FOLIC ACID 1 MG TABLET GT SCH (08:37)
[2022-10-20] MEDS: CARVEDILOL 6.25 MG TABLET GT SCH ×2 (08:37→21:04)
[2022-10-20] MEDS: NEPRO 1,000 ML BOTTLE GT PRN (08:48)
[2022-10-20] MEDS: medroxyPROGESTERone ACET 5 MG TABLET GT SCH (11:25)
[2022-10-20] MEDS ORDERED: INSU100V28 SQ (11:52)
[2022-10-20] MEDS ORDERED: PRED20TA PO (11:52)
[2022-10-20] MEDS ORDERED: Nepro GT (11:52)
[2022-10-20] MEDS ORDERED: MEDR5TAB GT (11:52)
[2022-10-20] MEDS ORDERED: Folic Acid GT (11:52)
[2022-10-20] MEDS ORDERED: PANT40SU2 GT (11:52)
[2022-10-20 12:00] VITALS: BP 139/65; TEMP 98.6; O2SAT 100
[2022-10-20 16:00] VITALS: BP 129/69; TEMP 98.3; O2SAT 99
[2022-10-20] MEDS: ATORVASTATIN 40 MG TABLET GT SCH (21:04)
[2022-10-21] VITALS: BP 135/68; TEMP 98.6; O2SAT 99
[2022-10-21] MEDS: BLOOD SUGAR DIAGNOSTIC 1 EACH STRIP IN SCH ×2 (00:35→06:16)
[2022-10-21] MEDS: INSULIN REGULAR, HUMAN 100 UNIT/ML 3 ML VIAL SQ PRN ×2 (00:38→06:20)
[2022-10-21] MEDS: IPRATROPIUM NEB FS 0.5 MG/2.5 ML AMPUL.NEB NEB SCH ×3 (02:52→10:45)
[2022-10-21] MEDS: ALBUTEROL FS 2.5 MG/3 ML VIAL.NEB NEB SCH ×3 (02:52→10:45)
[2022-10-21 08:00] VITALS: BP 145/68; TEMP 98.7; O2SAT 99
[2022-10-21 08:51] LABS: EOSINOPHILS # (AUTO) 0.1 K/uL (0.0-0.7); EOSINOPHILS % (AUTO) 0.4 % (0.0-6.0); HEMATOCRIT 25 % (33-45); HEMOGLOBIN 7.6 g/dL (11.5-14.8); LYMPHOCYTES # (AUTO) 0.9 K/uL (0.8-4.8); MEAN CORPUSCULAR HEMOGLOBIN 27 PG (26.0-33.0); MEAN CORPUSCULAR HGB CONC 31 g/dl (31.0-36.0); MEAN CORPUSCULAR VOLUME 89 fL (82-100); MONOCYTES # (AUTO) 0.4 K/uL (0.1-1.30); MONOCYTES % (AUTO) 3.2 % (2.0-12.0); NEUTROPHILS # (AUTO) 10.4 K/uL (1.8-8.9); NEUTROPHILS % (AUTO) 88.4 % (43.0-81.0); PLATELET COUNT (AUTO) 99 K/uL (150-450); RED CELL DISTRIBUTION WIDTH 23.8 % (11.5-15.0); WHITE BLOOD COUNT (AUTO) 11.8 K/uL (4.3-11.0)
[2022-10-21 08:59] LABS: CALCIUM, SERUM 8.8 mg/dL (8.5-10.1); CREATININE 0.5 mg/dL (0.6-1.3); POTASSIUM 3.7 mmol/L (3.5-5.1)
[2022-10-21] MEDS ORDERED: HYDROCORTISONE SOD SUCCINATE 100 MG/2 ML VIAL IV SCH (09:00)
[2022-10-21 09:05] LABS: BILIRUBIN,TOTAL 0.2 mg/dL (0.2-1.0); TOTAL PROTEIN, SERUM 5.1 g/dL (6.4-8.2)
[2022-10-21] MEDS: PANTOPRAZOLE 40 MG/PACK PACK GT SCH (09:20)
[2022-10-21 09:21] VITALS: BP 145/75
[2022-10-21] MEDS: CARVEDILOL 6.25 MG TABLET GT SCH (09:21)
[2022-10-21] MEDS: FOLIC ACID 1 MG TABLET GT SCH (09:21)
[2022-10-21] MEDS: PROSOURCE / PROSTAT (PYXIS) 30 ML UDC GT SCH (09:22)
[2022-10-21] MEDS: LEVOTHYROXINE SODIUM 50 MCG TABLET GT SCH (09:25)
[2022-10-21] MEDS: ARGININE/GLUTAMINE/CALCIUM BMB 1 EACH POWD.PACK GT SCH (09:26)
[2022-10-21] MEDS ORDERED: IV 1/2NS 1000 ML 1,000 ML IV ONE (11:00)
== END 2022-10-21 10:57 | DRG 4 ==
LOC: ER 16:25 → ICU 20:09 → TELE1 10-01 17:28 → ICU 10-04 13:37 → TELE-TD 10-14 16:05 → TELE1 10-16 17:30
PROVIDERS: ADMIT Student in an Organized Health Care Education/Training Program; ATTEND Internal Medicine
PROC: 30233N1 Transfusion of Nonautologous Red Blood Cells into Peripheral Vein, Percutaneous Approach (ICD-10-PCS; principal; 2022-09-28)
PROC: 05HC33Z Insertion of Infusion Device into Left Basilic Vein, Percutaneous Approach (ICD-10-PCS; 2022-09-29)
PROC: 5A1955Z Respiratory Ventilation, Greater than 96 Consecutive Hours (ICD-10-PCS; 2022-10-04)
PROC: 0BH17EZ Insertion of Endotracheal Airway into Trachea, Via Natural or Artificial Opening (ICD-10-PCS; 2022-10-04)
PROC: 0B113F4 Bypass Trachea to Cutaneous with Tracheostomy Device, Percutaneous Approach (ICD-10-PCS; 2022-10-13)
PROC: 0DH63UZ Insertion of Feeding Device into Stomach, Percutaneous Approach (ICD-10-PCS; 2022-10-18)
DX: A41.9 Sepsis, unspecified organism (principal); J15.9 Unspecified bacterial pneumonia; N17.0 Acute kidney failure with tubular necrosis; R65.21 Severe sepsis with septic shock; I50.33 Acute on chronic diastolic (congestive) heart failure; E43 Unspecified severe protein-calorie malnutrition; J96.21 Acute and chronic respiratory failure with hypoxia; G92.8 Other toxic encephalopathy; J69.0 Pneumonitis due to inhalation of food and vomit; I21.A1 Myocardial infarction type 2; D68.59 Other primary thrombophilia; J90 Pleural effusion, not elsewhere classified; C79.89 Secondary malignant neoplasm of other specified sites; E87.20 Acidosis, unspecified; I69.351 Hemiplegia and hemiparesis following cerebral infarction affecting right dominant side; C77.2 Secondary and unspecified malignant neoplasm of intra-abdominal lymph nodes; R47.01 Aphasia; E87.0 Hyperosmolality and hypernatremia; N13.30 Unspecified hydronephrosis; E87.5 Hyperkalemia; D64.9 Anemia, unspecified; I11.0 Hypertensive heart disease with heart failure; R13.10 Dysphagia, unspecified; Z80.0 Family history of malignant neoplasm of digestive organs; Z79.890 Hormone replacement therapy; Z79.899 Other long term (current) drug therapy; D63.8 Anemia in other chronic diseases classified elsewhere; D50.9 Iron deficiency anemia, unspecified; D69.6 Thrombocytopenia, unspecified; I08.0 Rheumatic disorders of both mitral and aortic valves; I27.20 Pulmonary hypertension, unspecified; E11.9 Type 2 diabetes mellitus without complications; H54.7 Unspecified visual loss; C55 Malignant neoplasm of uterus, part unspecified; G93.89 Other specified disorders of brain; I65.23 Occlusion and stenosis of bilateral carotid arteries; E88.09 Other disorders of plasma-protein metabolism, not elsewhere classified; K29.70 Gastritis, unspecified, without bleeding; R62.7 Adult failure to thrive; L89.156 Pressure-induced deep tissue damage of sacral region; E78.5 Hyperlipidemia, unspecified; Z79.02 Long term (current) use of antithrombotics/antiplatelets; R33.9 Retention of urine, unspecified; R31.9 Hematuria, unspecified; R21 Rash and other nonspecific skin eruption; F01.50 Vascular dementia, unspecified severity, without behavioral disturbance, psychotic disturbance, mood disturbance, and anxiety; E87.6 Hypokalemia; B96.89 Other specified bacterial agents as the cause of diseases classified elsewhere; B37.9 Candidiasis, unspecified; T38.0X5A Adverse effect of glucocorticoids and synthetic analogues, initial encounter; Y92.9 Unspecified place or not applicable; G96.198 Other disorders of meninges, not elsewhere classified; I69.398 Other sequelae of cerebral infarction
CPT/HCPCS: 31623; 31720; 36410; 36415; 36600; 43246; 70450-TC; 70470-TC; 71045-TC; 76770-TC; 80048-TC; 80053-TC; 80061-TC; 80076-TC; 81001; 82248-TC; 82533; 82570-TC; 82728-TC; 82803-TC; 82962-TC; 83540-TC; 83605-TC; 83735-TC; 84100-TC; 84300-TC; 84439-TC; 84443-TC; 84484-TC; 85025-TC; 85730-TC; 86803; 86850-TC; 87040-TC; 87081-TC; 87086-TC; 87806; 92526; 92611-TC; 93307-TC; 93880-TC; 94002-TC; 94003-TC; 94760-TC; 94762-TC; 94799-TC; A4217; A4223; A4624; A6253; A6403; A7526; A9563; C1769; C9113; G0378; J0456; J0692; J0696; J1644; J1720; J1815; J2704; J3490; J7030; J7040; J7050; J7060; J7070; P9016

== ENCOUNTER 2022-10-29 15:52 | Inpatient (IN) | payer MEDICARE, OTHER ==
[~2022-10-29] VITALS: Ht 167.6 cm; Wt 104.3 kg
[~2022-10-29 15:52] MED LIST: ATOR40TA GT; CARV6.252 GT; FOLI0.4T6 GT; FURO-145 GT; Folic Acid GT; INSU100V28 SQ; LEVO50TA GT; LISI20TA30 GT; MEDR5TAB GT; Nepro GT; PANT40SU2 GT; PRED20TA PO
[2022-10-29] MEDS ORDERED: IV NS 0.9% 1,000 ML BAG IV ONE (16:30)
[2022-10-29 16:44] LABS: EOSINOPHILS # (AUTO) 0.1 K/uL (0.0-0.7); EOSINOPHILS % (AUTO) 1.1 % (0.0-6.0); LYMPHOCYTES # (AUTO) 0.3 K/uL (0.8-4.8); LYMPHOCYTES % (AUTO) 4.2 % (20.0-44.0); MEAN CORPUSCULAR HEMOGLOBIN 28 PG (26.0-33.0); MEAN CORPUSCULAR HGB CONC 32 g/dl (31.0-36.0); MEAN CORPUSCULAR VOLUME 87 fL (82-100); MONOCYTES # (AUTO) 0.1 K/uL (0.1-1.30); MONOCYTES % (AUTO) 2.1 % (2.0-12.0); NEUTROPHILS # (AUTO) 6.5 K/uL (1.8-8.9); NEUTROPHILS % (AUTO) 92.6 % (43.0-81.0); RED CELL DISTRIBUTION WIDTH 23.8 % (11.5-15.0)
[2022-10-29 16:57] LABS: HEMATOCRIT 17 % (33-45); HEMOGLOBIN 5.4 g/dL (11.5-14.8); PLATELET COUNT (AUTO) 47 K/uL (150-450); RED BLOOD CELL COUNT(AUTO) 1.98 MIL/uL (4.0-5.2)
[2022-10-29 17:07] LABS: POTASSIUM 4.3 mmol/L (3.5-5.1)
[2022-10-29 17:08] LABS: CALCIUM, SERUM 8.6 mg/dL (8.5-10.1); CREATININE 2.1 mg/dL (0.6-1.3)
[2022-10-29 17:09] LABS: INR 1.04 (0.91-1.10); PARTIAL THROMBOPLASTIN TIME 25.6 SEC (24.3-34.3); PROTHROMBIN TIME 10.9 SECS (9.2-11.1)
[2022-10-29] MEDS ORDERED: HONE15GE TP (17:09)
[2022-10-29] MEDS ORDERED: POVI3780 TP (17:09)
[2022-10-29] MEDS ORDERED: BISA10SU11 RC (17:09)
[2022-10-29] MEDS ORDERED: PANT40SU2 GT (17:09)
[2022-10-29] MEDS ORDERED: PRED5TAB GT (17:09)
[2022-10-29] MEDS ORDERED: *INS REG3 SQ (17:09)
[2022-10-29] MEDS ORDERED: FERR325T24 GT (17:09)
[2022-10-29] MEDS ORDERED: ASCO-340 GT (17:09)
[2022-10-29] MEDS ORDERED: DOCU50LI GT (17:09)
[2022-10-29] MEDS ORDERED: PETR113O TP (17:09)
[2022-10-29] MEDS ORDERED: NORM210S TP (17:09)
[2022-10-29] MEDS ORDERED: CHLO473M5 MM (17:09)
[2022-10-29] MEDS ORDERED: NEPRO 1.8 GT (17:09)
[2022-10-29] MEDS ORDERED: COLL30OI TP (17:09)
[2022-10-29] MEDS ORDERED: IPRA4AER IH ×2 (17:09)
[2022-10-29] MEDS ORDERED: EPOE40007 SQ (17:09)
[2022-10-29] MEDS ORDERED: PRED20TA GT (17:09)
[2022-10-29] MEDS ORDERED: MEDR5TAB4 GT (17:09)
[2022-10-29] MEDS ORDERED: MAGN400O6 GT (17:09)
[2022-10-29] MEDS ORDERED: ACET-868 GT (17:09)
[2022-10-29] MEDS ORDERED: ZINC50TA69 GT (17:09)
[2022-10-29] MEDS ORDERED: PRED10TA GT (17:09)
[2022-10-29] MEDS ORDERED: AMIN887L7 GT (17:09)
[2022-10-29] MEDS ORDERED: ACET-2605 GT (17:09)
[2022-10-29] MEDS ORDERED: NA P133E RC (17:09)
[2022-10-29 17:27] LABS: BAND % (MANUAL) 8 % (0.0-5.0); LYMPHOCYTES % (MANUAL) 5 % (16-48); MONOCYTES % (MANUAL) 2 % (0-11.0); NEUTROPHILS % (MANUAL) 85 (42-76)
[2022-10-29 17:28] LABS: ANISOCYTOSIS 1+; PLATELET ESTIMATE DECREASED
[2022-10-29 17:49] LABS: BILIRUBIN,DIRECT 0.2 mg/dL (0.0-0.2); BILIRUBIN,TOTAL 0.3 mg/dL (0.2-1.0); TOTAL PROTEIN, SERUM 5.3 g/dL (6.4-8.2)
[2022-10-29 18:01] LABS: ALBUMIN 0.8 g/dL (3.4-5.0)
[2022-10-29 21:14] VITALS: BP 125/59; TEMP 98.5; O2SAT 100
[2022-10-29] MEDS ORDERED: ZOLPIDEM TARTRATE 5 MG TABLET PO PRN (21:30)
[2022-10-29] MEDS ORDERED: ACETAMINOPHEN 325 MG TABLET PO PRN (21:30)
[2022-10-29] MEDS ORDERED: MAG HYDROX/AL HYDROX/SIMETH 30 ML UDC PO PRN (21:30)
[2022-10-29] MEDS ORDERED: ONDANSETRON HCL/PF 4 MG/2 ML VIAL IVP PRN (21:30)
[2022-10-29] MEDS ORDERED: MAGNESIUM HYDROXIDE 30 ML UDC GT PRN (21:30)
[2022-10-29] MEDS ORDERED: Medication Not On Formulary EA (Ipratropium/Albuterol Sulfate (Combivent Respimat 20-100 IH PRN (21:30)
[2022-10-29] MEDS ORDERED: MAGNESIUM HYDROXIDE 30 ML UDC PO PRN (21:30)
[2022-10-29] MEDS ORDERED: Z GUARD REMEDY 4 OZ OINT TP PRN (21:30)
[2022-10-29] MEDS ORDERED: BISACODYL SUPP (10 MG) 10 MG/SUPP.RECT SUPP.RECT RC PRN (21:30)
[2022-10-29] MEDS: ATORVASTATIN 40 MG TABLET GT SCH (21:49)
[2022-10-29] MEDS ORDERED: IPRATROPIUM NEB FS 0.5 MG/2.5 ML AMPUL.NEB IH PRN (22:00)
[2022-10-29] MEDS ORDERED: ALBUTEROL FS 2.5 MG/0.5 ML VIAL.NEB NEB PRN (22:00)
[2022-10-29] MEDS ORDERED: EPOETIN ALFA (10,000 UNIT) 10,000 UNIT/ML VIAL SQ SCH (22:00)
[2022-10-29] MEDS: BLOOD SUGAR DIAGNOSTIC 1 EACH STRIP IN SCH (23:46)
[2022-10-29] MEDS: INSULIN REGULAR, HUMAN 100 UNIT/ML 3 ML VIAL SQ PRN (23:46)
[2022-10-30] VITALS: BP 126/58; TEMP 98; O2SAT 100
[2022-10-30] MEDS ORDERED: Medication Not On Formulary EA (Ipratropium/Albuterol Sulfate (Combivent Respimat 20-100 IH SCH
[2022-10-30] MEDS: IPRATROPIUM NEB FS 0.5 MG/2.5 ML AMPUL.NEB IH SCH ×4 (01:39→20:28)
[2022-10-30] MEDS: ALBUTEROL FS 2.5 MG/0.5 ML VIAL.NEB NEB SCH ×4 (01:39→20:28)
[2022-10-30] MEDS ORDERED: IV 1/2NS 1000 ML 1,000 ML IV PRN (02:30)
[2022-10-30] MEDS ORDERED: CEFTRIAXONE 1GM BAG (ER ONLY) 50 ML IV ONE (03:22)
[2022-10-30] MEDS: CEFTRIAXONE 1 G in IV D5W 50 ML IV SCH (03:25)
[2022-10-30 04:00] VITALS: BP 120/60; TEMP 98.2; O2SAT 100
[2022-10-30] MEDS: INSULIN REGULAR, HUMAN 100 UNIT/ML 3 ML VIAL SQ PRN ×2 (05:08→12:16)
[2022-10-30] MEDS: BLOOD SUGAR DIAGNOSTIC 1 EACH STRIP IN SCH ×3 (05:08→17:13)
[2022-10-30] MEDS ORDERED: AZITHROMYCIN 500 MG VIAL ONE (05:24)
[2022-10-30] MEDS: AZITHROMYCIN 500 MG in IV D5W 250 ML IV SCH (05:25)
[2022-10-30 05:58] LABS: EOSINOPHILS % (AUTO) 0.2 % (0.0-6.0); HEMATOCRIT 23 % (33-45); HEMOGLOBIN 7.2 g/dL (11.5-14.8); LYMPHOCYTES # (AUTO) 0.5 K/uL (0.8-4.8); LYMPHOCYTES % (AUTO) 7.8 % (20.0-44.0); MEAN CORPUSCULAR HEMOGLOBIN 30 PG (26.0-33.0); MEAN CORPUSCULAR HGB CONC 32 g/dl (31.0-36.0); MEAN CORPUSCULAR VOLUME 93 fL (82-100); MONOCYTES # (AUTO) 0.2 K/uL (0.1-1.30); MONOCYTES % (AUTO) 2.3 % (2.0-12.0); NEUTROPHILS # (AUTO) 6.1 K/uL (1.8-8.9); NEUTROPHILS % (AUTO) 89.7 % (43.0-81.0); RED BLOOD CELL COUNT(AUTO) 2.44 MIL/uL (4.0-5.2); RED CELL DISTRIBUTION WIDTH 22.6 % (11.5-15.0); WHITE BLOOD COUNT (AUTO) 6.7 K/uL (4.3-11.0)
[2022-10-30 06:36] LABS: BILIRUBIN,TOTAL 0.3 mg/dL (0.2-1.0); CALCIUM, SERUM 8.2 mg/dL (8.5-10.1); CREATININE 1.9 mg/dL (0.6-1.3); MAGNESIUM 2.1 mg/dL (1.8-2.4); PHOSPHORUS 2.2 mg/dL (2.5-4.9); TOTAL PROTEIN, SERUM 5.1 g/dL (6.4-8.2)
[2022-10-30 06:40] LABS: ALBUMIN 0.7 g/dL (3.4-5.0)
[2022-10-30] MEDS: LEVOTHYROXINE SODIUM 50 MCG TABLET GT SCH (07:41)
[2022-10-30 07:45] LABS: PLATELET COUNT (AUTO) 48 K/uL (150-450)
[2022-10-30 08:05] VITALS: BP 126/54; TEMP 98; O2SAT 100
[2022-10-30] MEDS: DOCUSATE SODIUM LIQ 100 MG/10 ML UDC GT SCH (08:36)
[2022-10-30] MEDS: CHLORHEXIDINE GLUCONATE 15 ML UDC MM SCH ×2 (08:36→16:54)
[2022-10-30] MEDS: FERROUS SULFATE (325 MG) 325 MG/TAB TABLET GT SCH (08:37)
[2022-10-30] MEDS: PANTOPRAZOLE 40 MG VIAL IV SCH ×2 (08:37→21:24)
[2022-10-30] MEDS: ASCORBIC ACID 500 MG TABLET GT SCH (08:37)
[2022-10-30] MEDS: FOLIC ACID 1 MG TABLET GT SCH (08:37)
[2022-10-30] MEDS: CARVEDILOL 6.25 MG TABLET GT SCH ×2 (08:38→16:55)
[2022-10-30] MEDS ORDERED: LISINOPRIL (20MG) 20 MG TABLET GT SCH (09:00)
[2022-10-30 12:00] VITALS: BP 110/56; TEMP 98.2; O2SAT 100
[2022-10-30 12:53] LABS: ANISOCYTOSIS 1+; BASOPHILS % (MANUAL) 0 % (0.0-2.0); EOSINOPHILS % (MANUAL) 0 % (0-4); LYMPHOCYTES % (MANUAL) 9 % (16-48); MONOCYTES % (MANUAL) 5 % (0-11.0); NEUTROPHILS % (MANUAL) 86 (42-76); PLATELET ESTIMATE DECREASED
[2022-10-30] MEDS ORDERED: NEPRO 1,000 ML BOTTLE GT PRN (15:00)
[2022-10-30] MEDS ORDERED: NEUTRA PHOS 1 POWD.PACKET GT ONE (16:00)
[2022-10-30 16:17] VITALS: BP 141/59; TEMP 98.1
[2022-10-30 21:00] VITALS: BP_SYST 138; BP_SYST 177; BP_DIAS 40; BP_DIAS 48; TEMP 97.1; O2SAT 100
[2022-10-30] MEDS: ATORVASTATIN 40 MG TABLET GT SCH (21:24)
[2022-10-31] VITALS (9 sets, daily range): BP systolic 101–143; BP diastolic 57–64; TEMP 97.8–99; O2SAT 100
[2022-10-31] MEDS: BLOOD SUGAR DIAGNOSTIC 1 EACH STRIP IN SCH ×5 (00:58→23:34)
[2022-10-31] MEDS: INSULIN REGULAR, HUMAN 100 UNIT/ML 3 ML VIAL SQ PRN ×5 (01:14→23:37)
[2022-10-31] MEDS: IPRATROPIUM NEB FS 0.5 MG/2.5 ML AMPUL.NEB IH SCH ×4 (01:43→20:20)
[2022-10-31] MEDS: ALBUTEROL FS 2.5 MG/0.5 ML VIAL.NEB NEB SCH ×4 (01:43→20:20)
[2022-10-31] MEDS: CEFTRIAXONE 1 G in IV D5W 50 ML IV SCH (02:21)
[2022-10-31] MEDS: AZITHROMYCIN 500 MG in IV D5W 250 ML IV SCH (02:58)
[2022-10-31 05:52] LABS: BASOPHILS % (AUTO) 0.1 % (0.0-2.0); EOSINOPHILS % (AUTO) 0.6 % (0.0-6.0); HEMATOCRIT 21 % (33-45); LYMPHOCYTES # (AUTO) 0.5 K/uL (0.8-4.8); LYMPHOCYTES % (AUTO) 8.1 % (20.0-44.0); MEAN CORPUSCULAR HEMOGLOBIN 30 PG (26.0-33.0); MEAN CORPUSCULAR HGB CONC 33 g/dl (31.0-36.0); MEAN CORPUSCULAR VOLUME 91 fL (82-100); MONOCYTES # (AUTO) 0.1 K/uL (0.1-1.30); MONOCYTES % (AUTO) 1.7 % (2.0-12.0); NEUTROPHILS # (AUTO) 5.4 K/uL (1.8-8.9); NEUTROPHILS % (AUTO) 89.5 % (43.0-81.0); RED BLOOD CELL COUNT(AUTO) 2.33 MIL/uL (4.0-5.2); RED CELL DISTRIBUTION WIDTH 22.3 % (11.5-15.0); WHITE BLOOD COUNT (AUTO) 6.1 K/uL (4.3-11.0)
[2022-10-31 06:12] LABS: BILIRUBIN,TOTAL 0.3 mg/dL (0.2-1.0); CALCIUM, SERUM 8.1 mg/dL (8.5-10.1); CREATININE 2.1 mg/dL (0.6-1.3); MAGNESIUM 2.1 mg/dL (1.8-2.4); PHOSPHORUS 2.7 mg/dL (2.5-4.9); POTASSIUM 3.9 mmol/L (3.5-5.1); TOTAL PROTEIN, SERUM 4.9 g/dL (6.4-8.2)
[2022-10-31 06:19] LABS: ALBUMIN 0.7 g/dL (3.4-5.0)
[2022-10-31 06:35] LABS: PLATELET COUNT (AUTO) 45 K/uL (150-450)
[2022-10-31] MEDS: ASCORBIC ACID 500 MG TABLET GT SCH (08:24)
[2022-10-31] MEDS: DOCUSATE SODIUM LIQ 100 MG/10 ML UDC GT SCH (08:24)
[2022-10-31] MEDS: CHLORHEXIDINE GLUCONATE 15 ML UDC MM SCH ×2 (08:24→17:59)
[2022-10-31] MEDS: FERROUS SULFATE (325 MG) 325 MG/TAB TABLET GT SCH (08:24)
[2022-10-31] MEDS: PANTOPRAZOLE 40 MG VIAL IV SCH ×2 (08:24→21:01)
[2022-10-31] MEDS: FOLIC ACID 1 MG TABLET GT SCH (08:24)
[2022-10-31] MEDS: LEVOTHYROXINE SODIUM 50 MCG TABLET GT SCH (08:24)
[2022-10-31] MEDS: CARVEDILOL 6.25 MG TABLET GT SCH ×2 (08:25→17:59)
[2022-10-31] MEDS: PROSOURCE / PROSTAT (PYXIS) 30 ML UDC GT SCH ×2 (08:26→17:59)
[2022-10-31] MEDS: DAKINS QUARTER STRENGTH (0.125%) 480 ML BOTTLE TOP SCH (09:26)
[2022-10-31] MEDS: CLOTRIMAZOLE 1% 15 GM TUBE TP SCH ×2 (09:26→18:02)
[2022-10-31 11:39] LABS: OCCULT BLOOD STOOL POSITIVE (NEGATIVE)
[2022-10-31 12:19] LABS: ANISOCYTOSIS 1+; BAND % (MANUAL) 5 % (0.0-5.0); BASOPHILS % (MANUAL) 0 % (0.0-2.0); EOSINOPHILS % (MANUAL) 0 % (0-4); LYMPHOCYTES % (MANUAL) 6 % (16-48); MONOCYTES % (MANUAL) 2 % (0-11.0); NEUTROPHILS % (MANUAL) 87 (42-76); PLATELET ESTIMATE DECREASED
[2022-10-31 15:57] LABS: IRON, SERUM 22 ug/dl (50-175); TOTAL IRON BINDING CAPACITY 111 ug/dl (250-450)
[2022-10-31 18:45] LABS: HEMOGLOBIN 6.5 g/dL (11.5-14.8)
[2022-10-31] MEDS: ATORVASTATIN 40 MG TABLET GT SCH (21:02)
[2022-11-01] VITALS: BP 136/63; TEMP 98.7; O2SAT 100
[2022-11-01] MEDS: ALBUTEROL FS 2.5 MG/0.5 ML VIAL.NEB NEB SCH ×4 (02:12→20:15)
[2022-11-01] MEDS: IPRATROPIUM NEB FS 0.5 MG/2.5 ML AMPUL.NEB IH SCH ×4 (02:12→20:15)
[2022-11-01] MEDS: CEFTRIAXONE 1 G in IV D5W 50 ML IV SCH (02:14)
[2022-11-01] MEDS: AZITHROMYCIN 500 MG in IV D5W 250 ML IV SCH (02:58)
[2022-11-01 04:00] VITALS: BP 125/51; TEMP 99; O2SAT 100
[2022-11-01] MEDS: BLOOD SUGAR DIAGNOSTIC 1 EACH STRIP IN SCH ×3 (05:10→18:06)
[2022-11-01] MEDS: INSULIN REGULAR, HUMAN 100 UNIT/ML 3 ML VIAL SQ PRN ×3 (05:11→18:07)
[2022-11-01 06:42] LABS: EOSINOPHILS % (AUTO) 0.3 % (0.0-6.0); HEMATOCRIT 25 % (33-45); HEMOGLOBIN 8.4 g/dL (11.5-14.8); LYMPHOCYTES # (AUTO) 0.5 K/uL (0.8-4.8); LYMPHOCYTES % (AUTO) 6.4 % (20.0-44.0); MEAN CORPUSCULAR HEMOGLOBIN 30 PG (26.0-33.0); MEAN CORPUSCULAR HGB CONC 33 g/dl (31.0-36.0); MEAN CORPUSCULAR VOLUME 91 fL (82-100); MONOCYTES # (AUTO) 0.1 K/uL (0.1-1.30); MONOCYTES % (AUTO) 1.7 % (2.0-12.0); NEUTROPHILS # (AUTO) 7.2 K/uL (1.8-8.9); NEUTROPHILS % (AUTO) 91.6 % (43.0-81.0); RED BLOOD CELL COUNT(AUTO) 2.76 MIL/uL (4.0-5.2); RED CELL DISTRIBUTION WIDTH 19.6 % (11.5-15.0); WHITE BLOOD COUNT (AUTO) 7.9 K/uL (4.3-11.0)
[2022-11-01 07:00] LABS: BILIRUBIN,TOTAL 0.3 mg/dL (0.2-1.0); CALCIUM, SERUM 8.2 mg/dL (8.5-10.1); CREATININE 2.1 mg/dL (0.6-1.3); MAGNESIUM 1.9 mg/dL (1.8-2.4); PHOSPHORUS 2.8 mg/dL (2.5-4.9); POTASSIUM 3.8 mmol/L (3.5-5.1); TOTAL PROTEIN, SERUM 5.1 g/dL (6.4-8.2)
[2022-11-01 07:11] LABS: PLATELET COUNT (AUTO) 47 K/uL (150-450)
[2022-11-01 07:19] LABS: ALBUMIN 0.7 g/dL (3.4-5.0)
[2022-11-01] MEDS: LEVOTHYROXINE SODIUM 50 MCG TABLET GT SCH ×3 (07:30→10:45)
[2022-11-01 08:00] VITALS: BP 182/99; TEMP 98.5; O2SAT 100
[2022-11-01 08:07] LABS: PTH, INTACT 41 pg/mL (15-65)
[2022-11-01] MEDS: DOCUSATE SODIUM LIQ 100 MG/10 ML UDC GT SCH ×3 (08:28→10:10)
[2022-11-01] MEDS: CARVEDILOL 6.25 MG TABLET GT SCH ×2 (08:28→17:00)
[2022-11-01] MEDS: PANTOPRAZOLE 40 MG VIAL IV SCH ×2 (08:28→21:42)
[2022-11-01] MEDS: CHLORHEXIDINE GLUCONATE 15 ML UDC MM SCH ×2 (08:28→16:44)
[2022-11-01] MEDS: FERROUS SULFATE (325 MG) 325 MG/TAB TABLET GT SCH ×3 (08:28→10:10)
[2022-11-01] MEDS: ASCORBIC ACID 500 MG TABLET GT SCH ×3 (08:28→10:10)
[2022-11-01] MEDS: FOLIC ACID 1 MG TABLET GT SCH ×3 (08:28→10:10)
[2022-11-01] MEDS: PROSOURCE / PROSTAT (PYXIS) 30 ML UDC GT SCH ×3 (09:00→10:12)
[2022-11-01] MEDS: CLOTRIMAZOLE 1% 15 GM TUBE TP SCH ×2 (09:30→17:13)
[2022-11-01] MEDS ORDERED: hydrALAZINE HCL IV 20 MG VIAL IV PRN (09:30)
[2022-11-01] MEDS: DAKINS QUARTER STRENGTH (0.125%) 480 ML BOTTLE TOP SCH (09:30)
[2022-11-01] MEDS ORDERED: EPOETIN ALFA (10,000 UNIT) 10,000 UNIT/ML VIAL SQ SCH (09:38)
[2022-11-01 11:58] LABS: LYMPHOCYTES % (MANUAL) 9 % (16-48); MONOCYTES % (MANUAL) 4 % (0-11.0); NEUTROPHILS % (MANUAL) 87 (42-76)
[2022-11-01 11:59] LABS: ANISOCYTOSIS 1+; BASOPHILS % (MANUAL) 0 % (0.0-2.0); EOSINOPHILS % (MANUAL) 0 % (0-4); PLATELET ESTIMATE DECREASED
[2022-11-01 12:00] VITALS: BP 99/43; TEMP 98.2; O2SAT 97
[2022-11-01 13:07] LABS: *SPE A/G RATIO 0.3 (0.7-1.7); *SPE ALPHA-1-GLOBULIN 0.5 g/dL (0.0-0.4); *SPE ALPHA-2-GLOBULIN 0.9 g/dL (0.4-1.0); *SPE BETA GLOBULIN 0.9 g/dL (0.7-1.3); *SPE GLOBULIN, TOTAL 3.2 g/dL (2.2-3.9); *SPE M-SPIKE Not Observed g/dL (Not Observed); *SPE PROTEIN TOTAL 4.2 g/dL (6.0-8.5); *SPEGAMMA GLOBULIN 0.9 g/dL (0.4-1.8)
[2022-11-01] MEDS ORDERED: EPOETIN ALFA (2000 UNIT) 2,000 UNIT/ML VIAL SQ SCH (15:00)
[2022-11-01] MEDS: EPOETIN ALFA (2000 UNIT) 2,000 UNIT/ML VIAL SQ SCH (15:09)
[2022-11-01 16:00] VITALS: BP 100/47; TEMP 97.7; O2SAT 100
[2022-11-01] MEDS: NEPRO 1,000 ML BOTTLE GT PRN (17:35)
[2022-11-01 20:00] VITALS: BP 102/55; TEMP 98; O2SAT 100
[2022-11-01] MEDS: ATORVASTATIN 40 MG TABLET GT SCH (21:42)
[2022-11-02] VITALS (7 sets, daily range): BP systolic 98–142; BP diastolic 49–66; TEMP 97.5–98; O2SAT 96–100
[2022-11-02] MEDS: BLOOD SUGAR DIAGNOSTIC 1 EACH STRIP IN SCH ×4 (00:15→17:05)
[2022-11-02] MEDS: INSULIN REGULAR, HUMAN 100 UNIT/ML 3 ML VIAL SQ PRN ×4 (00:16→17:07)
[2022-11-02] MEDS: ALBUTEROL FS 2.5 MG/0.5 ML VIAL.NEB NEB SCH ×4 (02:27→19:52)
[2022-11-02] MEDS: IPRATROPIUM NEB FS 0.5 MG/2.5 ML AMPUL.NEB IH SCH ×4 (02:27→19:52)
[2022-11-02] MEDS: AZITHROMYCIN 250 MG TABLET GT SCH (03:23)
[2022-11-02] MEDS: CEFTRIAXONE 1 G in IV D5W 50 ML IV SCH (03:23)
[2022-11-02] MEDS: LEVOTHYROXINE SODIUM 50 MCG TABLET GT SCH (07:32)
[2022-11-02 08:37] LABS: BILIRUBIN,TOTAL 0.3 mg/dL (0.2-1.0); CALCIUM, SERUM 8.3 mg/dL (8.5-10.1); CREATININE 2.2 mg/dL (0.6-1.3); MAGNESIUM 1.8 mg/dL (1.8-2.4); PHOSPHORUS 2.7 mg/dL (2.5-4.9); POTASSIUM 3.6 mmol/L (3.5-5.1)
[2022-11-02 08:41] LABS: ALBUMIN 0.7 g/dL (3.4-5.0)
[2022-11-02 08:45] LABS: BASOPHILS % (AUTO) 0.1 % (0.0-2.0); EOSINOPHILS % (AUTO) 0.3 % (0.0-6.0); HEMATOCRIT 25 % (33-45); HEMOGLOBIN 8.5 g/dL (11.5-14.8); LYMPHOCYTES # (AUTO) 0.4 K/uL (0.8-4.8); LYMPHOCYTES % (AUTO) 4.5 % (20.0-44.0); MEAN CORPUSCULAR HEMOGLOBIN 30 PG (26.0-33.0); MEAN CORPUSCULAR HGB CONC 34 g/dl (31.0-36.0); MEAN CORPUSCULAR VOLUME 91 fL (82-100); MONOCYTES # (AUTO) 0.2 K/uL (0.1-1.30); MONOCYTES % (AUTO) 1.7 % (2.0-12.0); NEUTROPHILS # (AUTO) 8.8 K/uL (1.8-8.9); NEUTROPHILS % (AUTO) 93.4 % (43.0-81.0); RED CELL DISTRIBUTION WIDTH 20.3 % (11.5-15.0); WHITE BLOOD COUNT (AUTO) 9.4 K/uL (4.3-11.0)
[2022-11-02 08:49] LABS: PLATELET COUNT (AUTO) 49 K/uL (150-450)
[2022-11-02] MEDS: CARVEDILOL 6.25 MG TABLET GT SCH ×2 (09:00→16:27)
[2022-11-02] MEDS: PANTOPRAZOLE 40 MG VIAL IV SCH ×2 (09:08→21:23)
[2022-11-02] MEDS: ASCORBIC ACID 500 MG TABLET GT SCH (09:08)
[2022-11-02] MEDS: CHLORHEXIDINE GLUCONATE 15 ML UDC MM SCH ×2 (09:08→16:26)
[2022-11-02] MEDS: FERROUS SULFATE (325 MG) 325 MG/TAB TABLET GT SCH (09:08)
[2022-11-02] MEDS: FOLIC ACID 1 MG TABLET GT SCH (09:08)
[2022-11-02] MEDS: DOCUSATE SODIUM LIQ 100 MG/10 ML UDC GT SCH (09:08)
[2022-11-02] MEDS: PROSOURCE / PROSTAT (PYXIS) 30 ML UDC GT SCH ×2 (09:09→16:27)
[2022-11-02] MEDS: CLOTRIMAZOLE 1% 15 GM TUBE TP SCH ×2 (09:10→16:27)
[2022-11-02] MEDS: DAKINS QUARTER STRENGTH (0.125%) 480 ML BOTTLE TOP SCH (09:10)
[2022-11-02 09:15] LABS: BAND % (MANUAL) 6 % (0.0-5.0); BASOPHILS % (MANUAL) 0 % (0.0-2.0); EOSINOPHILS % (MANUAL) 0 % (0-4); LYMPHOCYTES % (MANUAL) 5 % (16-48); MONOCYTES % (MANUAL) 3 % (0-11.0); NEUTROPHILS % (MANUAL) 86 (42-76)
[2022-11-02 09:16] LABS: ANISOCYTOSIS 1+; PLATELET ESTIMATE DECREASED
[2022-11-02] MEDS: NEPRO 1,000 ML BOTTLE GT PRN (20:46)
[2022-11-02] MEDS: ATORVASTATIN 40 MG TABLET GT SCH (21:23)
[2022-11-03] VITALS (7 sets, daily range): BP systolic 113–240; BP diastolic 51–78; TEMP 97.3–98; O2SAT 99–100
[2022-11-03] MEDS: BLOOD SUGAR DIAGNOSTIC 1 EACH STRIP IN SCH ×4 (00:05→17:36)
[2022-11-03] MEDS: INSULIN REGULAR, HUMAN 100 UNIT/ML 3 ML VIAL SQ PRN ×2 (00:07→05:40)
[2022-11-03] MEDS: IPRATROPIUM NEB FS 0.5 MG/2.5 ML AMPUL.NEB IH SCH ×4 (01:22→20:08)
[2022-11-03] MEDS: ALBUTEROL FS 2.5 MG/0.5 ML VIAL.NEB NEB SCH ×4 (01:22→20:08)
[2022-11-03] MEDS: AZITHROMYCIN 250 MG TABLET GT SCH (03:47)
[2022-11-03] MEDS: CEFTRIAXONE 1 G in IV D5W 50 ML IV SCH (03:47)
[2022-11-03 06:37] LABS: BASOPHILS % (AUTO) 0.1 % (0.0-2.0); EOSINOPHILS # (AUTO) 0.1 K/uL (0.0-0.7); EOSINOPHILS % (AUTO) 0.7 % (0.0-6.0); HEMATOCRIT 23 % (33-45); HEMOGLOBIN 7.6 g/dL (11.5-14.8); LYMPHOCYTES # (AUTO) 0.4 K/uL (0.8-4.8); MEAN CORPUSCULAR HEMOGLOBIN 30 PG (26.0-33.0); MEAN CORPUSCULAR HGB CONC 33 g/dl (31.0-36.0); MEAN CORPUSCULAR VOLUME 92 fL (82-100); MONOCYTES # (AUTO) 0.2 K/uL (0.1-1.30); MONOCYTES % (AUTO) 1.9 % (2.0-12.0); NEUTROPHILS # (AUTO) 7.7 K/uL (1.8-8.9); NEUTROPHILS % (AUTO) 92.3 % (43.0-81.0); RED BLOOD CELL COUNT(AUTO) 2.53 MIL/uL (4.0-5.2); RED CELL DISTRIBUTION WIDTH 20.2 % (11.5-15.0); WHITE BLOOD COUNT (AUTO) 8.4 K/uL (4.3-11.0)
[2022-11-03 06:51] LABS: BILIRUBIN,TOTAL 0.2 mg/dL (0.2-1.0); CALCIUM, SERUM 8.5 mg/dL (8.5-10.1); CREATININE 2.2 mg/dL (0.6-1.3); MAGNESIUM 2.1 mg/dL (1.8-2.4); PHOSPHORUS 2.8 mg/dL (2.5-4.9); POTASSIUM 3.5 mmol/L (3.5-5.1); TOTAL PROTEIN, SERUM 5.1 g/dL (6.4-8.2)
[2022-11-03 07:29] LABS: ALBUMIN 0.6 g/dL (3.4-5.0)
[2022-11-03] MEDS: LEVOTHYROXINE SODIUM 50 MCG TABLET GT SCH (07:30)
[2022-11-03 07:58] LABS: PLATELET COUNT (AUTO) 43 K/uL (150-450)
[2022-11-03] MEDS ORDERED: PROPOFOL 0 ML IV ONE (08:16)
[2022-11-03] MEDS ORDERED: PROPOFOL 20 ML IV ONE (08:16)
[2022-11-03] MEDS: ASCORBIC ACID 500 MG TABLET GT SCH (09:00)
[2022-11-03] MEDS: PROSOURCE / PROSTAT (PYXIS) 30 ML UDC GT SCH ×2 (09:00→17:07)
[2022-11-03] MEDS: CLOTRIMAZOLE 1% 15 GM TUBE TP SCH ×2 (09:00→17:08)
[2022-11-03] MEDS: DAKINS QUARTER STRENGTH (0.125%) 480 ML BOTTLE TOP SCH (09:00)
[2022-11-03] MEDS: PANTOPRAZOLE 40 MG VIAL IV SCH ×2 (09:00→21:24)
[2022-11-03] MEDS: CARVEDILOL 6.25 MG TABLET GT SCH ×2 (09:00→17:07)
[2022-11-03] MEDS: FERROUS SULFATE (325 MG) 325 MG/TAB TABLET GT SCH (09:00)
[2022-11-03] MEDS: DOCUSATE SODIUM LIQ 100 MG/10 ML UDC GT SCH (09:00)
[2022-11-03 09:01] LABS: INR 1.08 (0.91-1.10); PROTHROMBIN TIME 11.3 SECS (9.2-11.1)
[2022-11-03] MEDS: FOLIC ACID 1 MG TABLET GT SCH (11:26)
[2022-11-03] MEDS: CHLORHEXIDINE GLUCONATE 15 ML UDC MM SCH ×2 (11:32→17:07)
[2022-11-03 11:47] LABS: LYMPHOCYTES % (MANUAL) 7 % (16-48); MONOCYTES % (MANUAL) 1 % (0-11.0); NEUTROPHILS % (MANUAL) 92 (42-76); PLATELET ESTIMATE DECREASED
[2022-11-03 11:48] LABS: ANISOCYTOSIS 1+
[2022-11-03] MEDS: ARGININE/GLUTAMINE/CALCIUM BMB 1 EACH POWD.PACK GT SCH (17:07)
[2022-11-03] MEDS: SILVER SULFADIAZINE CREAM 25 GM TUBE TP SCH (17:07)
[2022-11-03] MEDS: BACI/NEOM/POLY B OINT PKT 1 UDPKT PACKET TP SCH (17:08)
[2022-11-03] MEDS: EPOETIN ALFA (2000 UNIT) 2,000 UNIT/ML VIAL SQ SCH (17:11)
[2022-11-03] MEDS: ATORVASTATIN 40 MG TABLET GT SCH (21:24)
[2022-11-04] VITALS: BP 140/56; TEMP 95.9; O2SAT 100
[2022-11-04] MEDS: BLOOD SUGAR DIAGNOSTIC 1 EACH STRIP IN SCH ×4 (00:09→18:44)
[2022-11-04] MEDS: INSULIN REGULAR, HUMAN 100 UNIT/ML 3 ML VIAL SQ PRN ×3 (00:14→19:14)
[2022-11-04] MEDS: ALBUTEROL FS 2.5 MG/0.5 ML VIAL.NEB NEB SCH ×4 (01:14→20:09)
[2022-11-04] MEDS: IPRATROPIUM NEB FS 0.5 MG/2.5 ML AMPUL.NEB IH SCH ×4 (01:14→20:09)
[2022-11-04] MEDS: CEFTRIAXONE 1 G in IV D5W 50 ML IV SCH (02:49)
[2022-11-04] MEDS: NEPRO 1,000 ML BOTTLE GT PRN (02:51)
[2022-11-04 04:00] VITALS: BP 113/48; TEMP 96.9; O2SAT 100
[2022-11-04 08:00] VITALS: BP 130/78; TEMP 97.6; O2SAT 99
[2022-11-04] MEDS: LEVOTHYROXINE SODIUM 50 MCG TABLET GT SCH (08:06)
[2022-11-04] MEDS: FOLIC ACID 1 MG TABLET GT SCH (08:06)
[2022-11-04] MEDS: CHLORHEXIDINE GLUCONATE 15 ML UDC MM SCH ×2 (08:06→16:45)
[2022-11-04] MEDS: BACI/NEOM/POLY B OINT PKT 1 UDPKT PACKET TP SCH (08:06)
[2022-11-04] MEDS: ASCORBIC ACID 500 MG TABLET GT SCH (08:06)
[2022-11-04] MEDS: FERROUS SULFATE (325 MG) 325 MG/TAB TABLET GT SCH (08:07)
[2022-11-04] MEDS: CARVEDILOL 6.25 MG TABLET GT SCH ×2 (08:08→16:41)
[2022-11-04] MEDS: DOCUSATE SODIUM LIQ 100 MG/10 ML UDC GT SCH (08:09)
[2022-11-04] MEDS: PROSOURCE / PROSTAT (PYXIS) 30 ML UDC GT SCH ×2 (08:09→16:45)
[2022-11-04] MEDS: PANTOPRAZOLE 40 MG VIAL IV SCH ×2 (08:10→21:18)
[2022-11-04] MEDS: DAKINS QUARTER STRENGTH (0.125%) 480 ML BOTTLE TOP SCH (08:15)
[2022-11-04] MEDS: CLOTRIMAZOLE 1% 15 GM TUBE TP SCH ×2 (08:15→16:45)
[2022-11-04] MEDS: SILVER SULFADIAZINE CREAM 25 GM TUBE TP SCH (08:15)
[2022-11-04] MEDS: ARGININE/GLUTAMINE/CALCIUM BMB 1 EACH POWD.PACK GT SCH ×2 (08:15→16:45)
[2022-11-04 12:00] VITALS: BP 97/55; TEMP 97.6; O2SAT 99
[2022-11-04 12:30] LABS: ABG BASE EXCESS -8.7 mmol/L; ABG OXYGEN SATURATION 92.7 % (92.0-98.5); ABG PCO2 27.7 mmHg (35.0-45.0); ABG PH 7.368 (7.350-7.450); ABG PO2 66.3 mmHg (75.0-100.0); ABG TOTAL HEMOGLOBIN 8.3 G/dL (12.0-16.0); COHb 0.3 % (0.5-1.5); O2Hb 92.4 % (94.0-97.0); SITE, ABG Left Radial; VENT MODE, BG AC 16 450 50% +5
[2022-11-04] MEDS ORDERED: FUROSEMIDE 100 MG/10 ML VIAL IV ONE (13:00)
[2022-11-04 16:00] VITALS: BP 97/55; TEMP 97.6; O2SAT 99
[2022-11-04] MEDS: NEOMY SULF/BACITRAC ZN/POLY 15 GM TUBE TP SCH (16:47)
[2022-11-04 18:52] LABS: BILIRUBIN,DIRECT 0.1 mg/dL (0.0-0.2); BILIRUBIN,TOTAL 0.3 mg/dL (0.2-1.0); CREATININE 2.4 mg/dL (0.6-1.3)
[2022-11-04 20:00] VITALS: BP 138/74; TEMP 97.5; O2SAT 97
[2022-11-04] MEDS: ATORVASTATIN 40 MG TABLET GT SCH (21:18)
[2022-11-05] VITALS: BP 114/63; TEMP 97.8; O2SAT 95
[2022-11-05] MEDS: BLOOD SUGAR DIAGNOSTIC 1 EACH STRIP IN SCH ×5 (00:22→23:02)
[2022-11-05] MEDS: INSULIN REGULAR, HUMAN 100 UNIT/ML 3 ML VIAL SQ PRN ×5 (00:25→23:04)
[2022-11-05] MEDS: ALBUTEROL FS 2.5 MG/0.5 ML VIAL.NEB NEB SCH ×4 (02:06→20:44)
[2022-11-05] MEDS: IPRATROPIUM NEB FS 0.5 MG/2.5 ML AMPUL.NEB IH SCH ×4 (02:06→20:44)
[2022-11-05] MEDS: CEFTRIAXONE 1 G in IV D5W 50 ML IV SCH (03:27)
[2022-11-05 04:00] VITALS: BP 132/83; TEMP 98.2; O2SAT 97
[2022-11-05] MEDS: NEPRO 1,000 ML BOTTLE GT PRN (06:21)
[2022-11-05 06:26] LABS: BASOPHILS % (AUTO) 0.1 % (0.0-2.0); EOSINOPHILS % (AUTO) 0.2 % (0.0-6.0); HEMATOCRIT 24 % (33-45); HEMOGLOBIN 7.7 g/dL (11.5-14.8); LYMPHOCYTES # (AUTO) 0.5 K/uL (0.8-4.8); MEAN CORPUSCULAR HEMOGLOBIN 30 PG (26.0-33.0); MEAN CORPUSCULAR HGB CONC 32 g/dl (31.0-36.0); MEAN CORPUSCULAR VOLUME 93 fL (82-100); MONOCYTES # (AUTO) 0.1 K/uL (0.1-1.30); MONOCYTES % (AUTO) 1.4 % (2.0-12.0); NEUTROPHILS # (AUTO) 6.5 K/uL (1.8-8.9); NEUTROPHILS % (AUTO) 91.3 % (43.0-81.0); RED BLOOD CELL COUNT(AUTO) 2.62 MIL/uL (4.0-5.2); RED CELL DISTRIBUTION WIDTH 20.6 % (11.5-15.0); WHITE BLOOD COUNT (AUTO) 7.1 K/uL (4.3-11.0)
[2022-11-05 06:41] LABS: PLATELET COUNT (AUTO) 40 K/uL (150-450)
[2022-11-05 07:26] LABS: CALCIUM, SERUM 8.7 mg/dL (8.5-10.1); CREATININE 2.5 mg/dL (0.6-1.3); MAGNESIUM 1.9 mg/dL (1.8-2.4); PHOSPHORUS 2.7 mg/dL (2.5-4.9); POTASSIUM 3.5 mmol/L (3.5-5.1)
[2022-11-05 08:00] VITALS: BP 116/66; TEMP 97.6; O2SAT 100
[2022-11-05] MEDS: DOCUSATE SODIUM LIQ 100 MG/10 ML UDC GT SCH (09:09)
[2022-11-05] MEDS: LEVOTHYROXINE SODIUM 50 MCG TABLET GT SCH (09:09)
[2022-11-05] MEDS: FOLIC ACID 1 MG TABLET GT SCH (09:09)
[2022-11-05] MEDS: PANTOPRAZOLE 40 MG VIAL IV SCH ×2 (09:10→21:27)
[2022-11-05] MEDS: ASCORBIC ACID 500 MG TABLET GT SCH (09:10)
[2022-11-05] MEDS: CHLORHEXIDINE GLUCONATE 15 ML UDC MM SCH ×2 (09:10→16:27)
[2022-11-05] MEDS: FERROUS SULFATE (325 MG) 325 MG/TAB TABLET GT SCH (09:10)
[2022-11-05] MEDS: CARVEDILOL 6.25 MG TABLET GT SCH ×2 (09:11→16:27)
[2022-11-05] MEDS: PROSOURCE / PROSTAT (PYXIS) 30 ML UDC GT SCH ×2 (09:11→16:28)
[2022-11-05] MEDS: ARGININE/GLUTAMINE/CALCIUM BMB 1 EACH POWD.PACK GT SCH ×2 (09:11→16:28)
[2022-11-05] MEDS: DAKINS QUARTER STRENGTH (0.125%) 480 ML BOTTLE TOP SCH (09:25)
[2022-11-05] MEDS: NEOMY SULF/BACITRAC ZN/POLY 15 GM TUBE TP SCH ×2 (09:25→16:29)
[2022-11-05] MEDS: CLOTRIMAZOLE 1% 15 GM TUBE TP SCH ×2 (09:26→16:29)
[2022-11-05] MEDS: SILVER SULFADIAZINE CREAM 25 GM TUBE TP SCH (09:27)
[2022-11-05 12:00] VITALS: BP 126/60; TEMP 97.4; O2SAT 100
[2022-11-05 13:33] LABS: ANISOCYTOSIS 1+; BAND % (MANUAL) 4 % (0.0-5.0); BASOPHILS % (MANUAL) 0 % (0.0-2.0); EOSINOPHILS % (MANUAL) 0 % (0-4); LYMPHOCYTES % (MANUAL) 7 % (16-48); MONOCYTES % (MANUAL) 3 % (0-11.0); NEUTROPHILS % (MANUAL) 86 (42-76); PLATELET ESTIMATE DECREASED
[2022-11-05] MEDS: EPOETIN ALFA (2000 UNIT) 2,000 UNIT/ML VIAL SQ SCH (14:27)
[2022-11-05 16:00] VITALS: BP 106/56; TEMP 96; O2SAT 100
[2022-11-05 20:00] VITALS: BP 123/51; TEMP 98; O2SAT 100
[2022-11-06] VITALS: BP 110/72; TEMP 98.3; O2SAT 98
[2022-11-06] MEDS: ALBUTEROL FS 2.5 MG/0.5 ML VIAL.NEB NEB SCH ×4 (02:14→19:05)
[2022-11-06] MEDS: IPRATROPIUM NEB FS 0.5 MG/2.5 ML AMPUL.NEB IH SCH ×4 (02:14→19:05)
[2022-11-06] MEDS: CEFTRIAXONE 1 G in IV D5W 50 ML IV SCH (02:31)
[2022-11-06] MEDS: NEPRO 1,000 ML BOTTLE GT PRN (03:51)
[2022-11-06 04:00] VITALS: BP 105/89; TEMP 98; O2SAT 98
[2022-11-06] MEDS: BLOOD SUGAR DIAGNOSTIC 1 EACH STRIP IN SCH ×3 (05:25→17:29)
[2022-11-06] MEDS: INSULIN REGULAR, HUMAN 100 UNIT/ML 3 ML VIAL SQ PRN ×3 (06:13→17:33)
[2022-11-06 08:00] VITALS: BP 111/46; TEMP 98.2; O2SAT 96
[2022-11-06] MEDS: FOLIC ACID 1 MG TABLET GT SCH (08:25)
[2022-11-06] MEDS: FERROUS SULFATE (325 MG) 325 MG/TAB TABLET GT SCH (08:25)
[2022-11-06] MEDS: CHLORHEXIDINE GLUCONATE 15 ML UDC MM SCH ×2 (08:25→17:30)
[2022-11-06] MEDS: DOCUSATE SODIUM LIQ 100 MG/10 ML UDC GT SCH (08:25)
[2022-11-06] MEDS: PROSOURCE / PROSTAT (PYXIS) 30 ML UDC GT SCH ×2 (08:25→17:30)
[2022-11-06] MEDS: ARGININE/GLUTAMINE/CALCIUM BMB 1 EACH POWD.PACK GT SCH ×2 (08:25→17:30)
[2022-11-06] MEDS: PANTOPRAZOLE 40 MG VIAL IV SCH ×2 (08:25→21:15)
[2022-11-06] MEDS: LEVOTHYROXINE SODIUM 50 MCG TABLET GT SCH (08:25)
[2022-11-06] MEDS: ASCORBIC ACID 500 MG TABLET GT SCH (08:25)
[2022-11-06] MEDS: CARVEDILOL 6.25 MG TABLET GT SCH ×2 (08:26→17:30)
[2022-11-06] MEDS: DAKINS QUARTER STRENGTH (0.125%) 480 ML BOTTLE TOP SCH (08:41)
[2022-11-06] MEDS: SILVER SULFADIAZINE CREAM 25 GM TUBE TP SCH (08:42)
[2022-11-06] MEDS: CLOTRIMAZOLE 1% 15 GM TUBE TP SCH ×2 (08:42→17:57)
[2022-11-06] MEDS: NEOMY SULF/BACITRAC ZN/POLY 15 GM TUBE TP SCH ×2 (08:42→17:57)
[2022-11-06 12:00] VITALS: BP_SYST 109; BP_SYST 97; BP_DIAS 48; BP_DIAS 60; TEMP 97.6; TEMP 98.2; O2SAT 97; O2SAT 98
[2022-11-06 12:21] LABS: BILIRUBIN,TOTAL 0.3 mg/dL (0.2-1.0); CALCIUM, SERUM 8.9 mg/dL (8.5-10.1); CREATININE 2.5 mg/dL (0.6-1.3); MAGNESIUM 2.3 mg/dL (1.8-2.4); PHOSPHORUS 2.6 mg/dL (2.5-4.9); POTASSIUM 3.9 mmol/L (3.5-5.1); TOTAL PROTEIN, SERUM 4.8 g/dL (6.4-8.2)
[2022-11-06 12:34] LABS: ALBUMIN 0.5 g/dL (3.4-5.0)
[2022-11-06 16:00] VITALS: BP 138/59; TEMP 97.2; O2SAT 97
[2022-11-06 20:00] VITALS: BP 156/46; TEMP 94; O2SAT 96
[2022-11-06 22:14] LABS: BASOPHILS % (AUTO) 0.1 % (0.0-2.0); EOSINOPHILS % (AUTO) 0.2 % (0.0-6.0); HEMATOCRIT 23 % (33-45); HEMOGLOBIN 7.4 g/dL (11.5-14.8); LYMPHOCYTES # (AUTO) 0.4 K/uL (0.8-4.8); MEAN CORPUSCULAR HEMOGLOBIN 30 PG (26.0-33.0); MEAN CORPUSCULAR HGB CONC 32 g/dl (31.0-36.0); MEAN CORPUSCULAR VOLUME 93 fL (82-100); MONOCYTES # (AUTO) 0.1 K/uL (0.1-1.30); MONOCYTES % (AUTO) 1.2 % (2.0-12.0); NEUTROPHILS # (AUTO) 4.9 K/uL (1.8-8.9); NEUTROPHILS % (AUTO) 90.5 % (43.0-81.0); RED BLOOD CELL COUNT(AUTO) 2.52 MIL/uL (4.0-5.2); RED CELL DISTRIBUTION WIDTH 20.6 % (11.5-15.0); WHITE BLOOD COUNT (AUTO) 5.4 K/uL (4.3-11.0)
[2022-11-06 22:26] LABS: PLATELET COUNT (AUTO) 20 K/uL (150-450)
[2022-11-07] VITALS (11 sets, daily range): BP systolic 76–98; BP diastolic 31–48; TEMP 96.4–101; O2SAT 96–99
[2022-11-07] MEDS: BLOOD SUGAR DIAGNOSTIC 1 EACH STRIP IN SCH ×4 (00:06→19:27)
[2022-11-07] MEDS: INSULIN REGULAR, HUMAN 100 UNIT/ML 3 ML VIAL SQ PRN ×4 (00:07→19:27)
[2022-11-07] MEDS: ALBUTEROL FS 2.5 MG/0.5 ML VIAL.NEB NEB SCH ×4 (00:35→19:46)
[2022-11-07] MEDS: IPRATROPIUM NEB FS 0.5 MG/2.5 ML AMPUL.NEB IH SCH ×4 (00:35→19:46)
[2022-11-07 01:44] LABS: ANISOCYTOSIS 1+; BASOPHILS % (MANUAL) 0 % (0.0-2.0); EOSINOPHILS % (MANUAL) 0 % (0-4); LYMPHOCYTES % (MANUAL) 9 % (16-48); MONOCYTES % (MANUAL) 4 % (0-11.0); NEUTROPHILS % (MANUAL) 87 (42-76); PLATELET ESTIMATE DECREASED
[2022-11-07] MEDS: CEFTRIAXONE 1 G in IV D5W 50 ML IV SCH (02:50)
[2022-11-07] MEDS: NEPRO 1,000 ML BOTTLE GT PRN (06:11)
[2022-11-07 06:47] LABS: BASOPHILS % (AUTO) 0.1 % (0.0-2.0); EOSINOPHILS % (AUTO) 0.2 % (0.0-6.0); HEMATOCRIT 22 % (33-45); LYMPHOCYTES # (AUTO) 0.5 K/uL (0.8-4.8); LYMPHOCYTES % (AUTO) 8.6 % (20.0-44.0); MEAN CORPUSCULAR HEMOGLOBIN 29 PG (26.0-33.0); MEAN CORPUSCULAR HGB CONC 32 g/dl (31.0-36.0); MEAN CORPUSCULAR VOLUME 93 fL (82-100); MONOCYTES # (AUTO) 0.1 K/uL (0.1-1.30); MONOCYTES % (AUTO) 1.2 % (2.0-12.0); NEUTROPHILS # (AUTO) 5.2 K/uL (1.8-8.9); NEUTROPHILS % (AUTO) 89.9 % (43.0-81.0); RED BLOOD CELL COUNT(AUTO) 2.38 MIL/uL (4.0-5.2); RED CELL DISTRIBUTION WIDTH 20.6 % (11.5-15.0); WHITE BLOOD COUNT (AUTO) 5.8 K/uL (4.3-11.0)
[2022-11-07 06:52] LABS: PLATELET COUNT (AUTO) 23 K/uL (150-450)
[2022-11-07 07:11] LABS: BILIRUBIN,TOTAL 0.3 mg/dL (0.2-1.0); CALCIUM, SERUM 9.2 mg/dL (8.5-10.1); CREATININE 2.4 mg/dL (0.6-1.3); MAGNESIUM 2.1 mg/dL (1.8-2.4); PHOSPHORUS 2.4 mg/dL (2.5-4.9); POTASSIUM 3.9 mmol/L (3.5-5.1)
[2022-11-07 07:13] LABS: ALBUMIN 0.6 g/dL (3.4-5.0)
[2022-11-07] MEDS: LEVOTHYROXINE SODIUM 50 MCG TABLET GT SCH ×2 (07:30→08:55)
[2022-11-07] MEDS: FERROUS SULFATE (325 MG) 325 MG/TAB TABLET GT SCH ×2 (08:54→09:00)
[2022-11-07] MEDS: CARVEDILOL 6.25 MG TABLET GT SCH ×2 (08:54→17:00)
[2022-11-07] MEDS: FOLIC ACID 1 MG TABLET GT SCH ×2 (08:54→09:00)
[2022-11-07] MEDS: ASCORBIC ACID 500 MG TABLET GT SCH ×2 (08:54→09:00)
[2022-11-07] MEDS: ARGININE/GLUTAMINE/CALCIUM BMB 1 EACH POWD.PACK GT SCH ×3 (08:55→17:00)
[2022-11-07] MEDS: PANTOPRAZOLE 40 MG VIAL IV SCH ×3 (08:55→21:09)
[2022-11-07] MEDS: DOCUSATE SODIUM LIQ 100 MG/10 ML UDC GT SCH ×2 (08:55→09:00)
[2022-11-07] MEDS: CHLORHEXIDINE GLUCONATE 15 ML UDC MM SCH ×2 (08:55→18:48)
[2022-11-07] MEDS: PROSOURCE / PROSTAT (PYXIS) 30 ML UDC GT SCH ×3 (08:56→17:00)
[2022-11-07] MEDS: CLOTRIMAZOLE 1% 15 GM TUBE TP SCH ×2 (09:00→17:48)
[2022-11-07] MEDS: SILVER SULFADIAZINE CREAM 25 GM TUBE TP SCH (09:00)
[2022-11-07] MEDS: DAKINS QUARTER STRENGTH (0.125%) 480 ML BOTTLE TOP SCH (09:00)
[2022-11-07] MEDS: NEOMY SULF/BACITRAC ZN/POLY 15 GM TUBE TP SCH ×2 (09:00→17:48)
[2022-11-07 11:11] LABS: ABG BASE EXCESS -10.4 mmol/L; ABG OXYGEN SATURATION 94.4 % (92.0-98.5); ABG PCO2 29.3 mmHg (35.0-45.0); ABG PH 7.318 (7.350-7.450); ABG PO2 74.5 mmHg (75.0-100.0); ABG TOTAL HEMOGLOBIN 7.7 G/dL (12.0-16.0); COHb 0.3 % (0.5-1.5); MetHb 0.3 % (0.0-1.5); O2Hb 93.8 % (94.0-97.0); PEEP,BG 5 cm H2O; SITE, ABG Left Radial; VT, ABG 475 mL
[2022-11-07] MEDS ORDERED: NEUTRA PHOS 1 POWD.PACKET PO ONE (16:00)
[2022-11-07 17:13] LABS: HEMOGLOBIN 8.4 g/dL (11.5-14.8)
[2022-11-07] MEDS: IV NS 0.9% 1,000 ML IV PRN (19:17)
[2022-11-07 21:19] LABS: ANISOCYTOSIS 1+; BAND % (MANUAL) 6 % (0.0-5.0); LYMPHOCYTES % (MANUAL) 13 % (16-48); MONOCYTES % (MANUAL) 1 % (0-11.0); NEUTROPHILS % (MANUAL) 80 (42-76); OVALOCYTES RARE; PLATELET ESTIMATE DECREASED; ROULEAUX 1+
[2022-11-08] VITALS (66 sets, daily range): BP systolic 68–127; BP diastolic 36–86; TEMP 97.2–98.9; O2SAT 91–100
[2022-11-08] MEDS: BLOOD SUGAR DIAGNOSTIC 1 EACH STRIP IN SCH ×4 (00:18→17:45)
[2022-11-08] MEDS: IPRATROPIUM NEB FS 0.5 MG/2.5 ML AMPUL.NEB IH SCH ×4 (01:28→19:53)
[2022-11-08] MEDS: ALBUTEROL FS 2.5 MG/0.5 ML VIAL.NEB NEB SCH ×4 (01:28→19:53)
[2022-11-08] MEDS ORDERED: NOREPINEPHRINE 4 MG/4 ML AMPUL IV ONE (04:44)
[2022-11-08] MEDS ORDERED: NOREPINEPHRINE 32 MG in IV NS 0.9% 218 ML IV PRN (05:00)
[2022-11-08 05:49] LABS: BASOPHILS % (AUTO) 0.3 % (0.0-2.0); EOSINOPHILS % (AUTO) 0.3 % (0.0-6.0); HEMATOCRIT 28 % (33-45); HEMOGLOBIN 9.1 g/dL (11.5-14.8); LYMPHOCYTES # (AUTO) 0.9 K/uL (0.8-4.8); LYMPHOCYTES % (AUTO) 9.4 % (20.0-44.0); MEAN CORPUSCULAR HEMOGLOBIN 30 PG (26.0-33.0); MEAN CORPUSCULAR HGB CONC 33 g/dl (31.0-36.0); MEAN CORPUSCULAR VOLUME 91 fL (82-100); MONOCYTES # (AUTO) 0.2 K/uL (0.1-1.30); MONOCYTES % (AUTO) 1.7 % (2.0-12.0); NEUTROPHILS # (AUTO) 8.3 K/uL (1.8-8.9); NEUTROPHILS % (AUTO) 88.3 % (43.0-81.0); RED BLOOD CELL COUNT(AUTO) 3.04 MIL/uL (4.0-5.2); WHITE BLOOD COUNT (AUTO) 9.4 K/uL (4.3-11.0)
[2022-11-08] MEDS: INSULIN REGULAR, HUMAN 100 UNIT/ML 3 ML VIAL SQ PRN ×3 (06:08→18:25)
[2022-11-08 06:09] LABS: PLATELET COUNT (AUTO) 24 K/uL (150-450)
[2022-11-08] MEDS: IV NS 0.9% 1,000 ML IV PRN ×2 (06:45→18:54)
[2022-11-08] MEDS: LEVOTHYROXINE SODIUM 50 MCG TABLET GT SCH (07:30)
[2022-11-08] MEDS: CARVEDILOL 6.25 MG TABLET GT SCH ×2 (08:30→17:00)
[2022-11-08] MEDS: DOCUSATE SODIUM LIQ 100 MG/10 ML UDC GT SCH (08:30)
[2022-11-08] MEDS: FERROUS SULFATE (325 MG) 325 MG/TAB TABLET GT SCH (08:30)
[2022-11-08] MEDS: FOLIC ACID 1 MG TABLET GT SCH (08:30)
[2022-11-08] MEDS: PROSOURCE / PROSTAT (PYXIS) 30 ML UDC GT SCH ×2 (08:31→17:00)
[2022-11-08] MEDS: ARGININE/GLUTAMINE/CALCIUM BMB 1 EACH POWD.PACK GT SCH ×2 (08:31→17:00)
[2022-11-08] MEDS: ASCORBIC ACID 500 MG TABLET GT SCH (08:31)
[2022-11-08] MEDS: PANTOPRAZOLE 40 MG VIAL IV SCH ×2 (08:56→20:58)
[2022-11-08] MEDS: CHLORHEXIDINE GLUCONATE 15 ML UDC MM SCH ×2 (09:09→18:11)
[2022-11-08] MEDS: CLOTRIMAZOLE 1% 15 GM TUBE TP SCH ×2 (09:09→18:12)
[2022-11-08] MEDS: DAKINS QUARTER STRENGTH (0.125%) 480 ML BOTTLE TOP SCH (10:50)
[2022-11-08] MEDS: SILVER SULFADIAZINE CREAM 25 GM TUBE TP SCH (10:50)
[2022-11-08] MEDS: NEOMY SULF/BACITRAC ZN/POLY 15 GM TUBE TP SCH ×2 (10:50→18:12)
[2022-11-08] MEDS: HYDROCORTISONE SOD SUCCINATE 100 MG/2 ML VIAL IV SCH ×3 (10:54→20:58)
[2022-11-08 13:20] LABS: ANISOCYTOSIS 1+; BASOPHILS % (MANUAL) 0 % (0.0-2.0); EOSINOPHILS % (MANUAL) 3 % (0-4); LYMPHOCYTES % (MANUAL) 10 % (16-48); MONOCYTES % (MANUAL) 2 % (0-11.0); NEUTROPHILS % (MANUAL) 85 (42-76); PLATELET ESTIMATE DECREASED
[2022-11-08] MEDS: EPOETIN ALFA (2000 UNIT) 2,000 UNIT/ML VIAL SQ SCH (17:46)
[2022-11-09] VITALS (74 sets, daily range): BP systolic 55–108; BP diastolic 22–63; TEMP 97.2–98.2; O2SAT 69–100
[2022-11-09] MEDS: INSULIN REGULAR, HUMAN 100 UNIT/ML 3 ML VIAL SQ PRN ×4 (00:51→17:14)
[2022-11-09] MEDS: BLOOD SUGAR DIAGNOSTIC 1 EACH STRIP IN SCH ×4 (00:51→17:09)
[2022-11-09] MEDS: IPRATROPIUM NEB FS 0.5 MG/2.5 ML AMPUL.NEB IH SCH ×4 (02:13→19:42)
[2022-11-09] MEDS: ALBUTEROL FS 2.5 MG/0.5 ML VIAL.NEB NEB SCH ×4 (02:13→19:42)
[2022-11-09] MEDS: NOREPINEPHRINE 8 MG in IV NS 0.9% 250ML IV PRN ×3 (05:03→13:43)
[2022-11-09 05:18] LABS: BASOPHILS % (AUTO) 0.1 % (0.0-2.0); EOSINOPHILS # (AUTO) 0.2 K/uL (0.0-0.7); EOSINOPHILS % (AUTO) 1.8 % (0.0-6.0); HEMATOCRIT 25 % (33-45); HEMOGLOBIN 8.2 g/dL (11.5-14.8); LYMPHOCYTES # (AUTO) 0.9 K/uL (0.8-4.8); LYMPHOCYTES % (AUTO) 6.6 % (20.0-44.0); MEAN CORPUSCULAR HEMOGLOBIN 30 PG (26.0-33.0); MEAN CORPUSCULAR HGB CONC 32 g/dl (31.0-36.0); MEAN CORPUSCULAR VOLUME 92 fL (82-100); MONOCYTES # (AUTO) 0.2 K/uL (0.1-1.30); MONOCYTES % (AUTO) 1.5 % (2.0-12.0); NEUTROPHILS # (AUTO) 11.8 K/uL (1.8-8.9); RED BLOOD CELL COUNT(AUTO) 2.76 MIL/uL (4.0-5.2); RED CELL DISTRIBUTION WIDTH 19.9 % (11.5-15.0); WHITE BLOOD COUNT (AUTO) 13.1 K/uL (4.3-11.0)
[2022-11-09 05:23] LABS: PLATELET COUNT (AUTO) 16 K/uL (150-450)
[2022-11-09 05:37] LABS: BILIRUBIN,TOTAL 0.4 mg/dL (0.2-1.0); CALCIUM, SERUM 8.7 mg/dL (8.5-10.1); CREATININE 2.4 mg/dL (0.6-1.3); MAGNESIUM 2.2 mg/dL (1.8-2.4); PHOSPHORUS 3.5 mg/dL (2.5-4.9); POTASSIUM 4.8 mmol/L (3.5-5.1); TOTAL PROTEIN, SERUM 5.2 g/dL (6.4-8.2)
[2022-11-09 05:39] LABS: ALBUMIN 0.6 g/dL (3.4-5.0)
[2022-11-09] MEDS: HYDROCORTISONE SOD SUCCINATE 100 MG/2 ML VIAL IV SCH ×3 (05:43→21:33)
[2022-11-09] MEDS: LEVOTHYROXINE SODIUM 50 MCG TABLET GT SCH (07:30)
[2022-11-09] MEDS: FERROUS SULFATE (325 MG) 325 MG/TAB TABLET GT SCH (08:11)
[2022-11-09] MEDS: NEOMY SULF/BACITRAC ZN/POLY 15 GM TUBE TP SCH ×2 (08:11→16:42)
[2022-11-09] MEDS: FOLIC ACID 1 MG TABLET GT SCH (08:11)
[2022-11-09] MEDS: DOCUSATE SODIUM LIQ 100 MG/10 ML UDC GT SCH (08:11)
[2022-11-09] MEDS: PROSOURCE / PROSTAT (PYXIS) 30 ML UDC GT SCH ×2 (08:11→16:42)
[2022-11-09] MEDS: ASCORBIC ACID 500 MG TABLET GT SCH (08:11)
[2022-11-09] MEDS: CARVEDILOL 6.25 MG TABLET GT SCH ×2 (08:11→16:42)
[2022-11-09] MEDS: ARGININE/GLUTAMINE/CALCIUM BMB 1 EACH POWD.PACK GT SCH ×2 (08:11→16:42)
[2022-11-09] MEDS: DAKINS QUARTER STRENGTH (0.125%) 480 ML BOTTLE TOP SCH (08:12)
[2022-11-09] MEDS: CLOTRIMAZOLE 1% 15 GM TUBE TP SCH ×2 (08:12→16:42)
[2022-11-09] MEDS: SILVER SULFADIAZINE CREAM 25 GM TUBE TP SCH (08:12)
[2022-11-09] MEDS: CHLORHEXIDINE GLUCONATE 15 ML UDC MM SCH ×2 (08:18→17:09)
[2022-11-09] MEDS: PANTOPRAZOLE 40 MG VIAL IV SCH ×2 (08:18→21:33)
[2022-11-09] MEDS: IV NS 0.9% 1,000 ML IV PRN ×2 (08:23→22:27)
[2022-11-09 11:45] LABS: ANISOCYTOSIS 1+; BAND % (MANUAL) 6 % (0.0-5.0); BASOPHILS % (MANUAL) 0 % (0.0-2.0); EOSINOPHILS % (MANUAL) 0 % (0-4); LYMPHOCYTES % (MANUAL) 6 % (16-48); MONOCYTES % (MANUAL) 3 % (0-11.0); NEUTROPHILS % (MANUAL) 85 (42-76); PLATELET ESTIMATE DECREASED
[2022-11-09 14:36] LABS: BASOPHILS % (AUTO) 0.3 % (0.0-2.0)
[2022-11-09 14:56] LABS: EOSINOPHILS # (AUTO) 0.2 K/uL (0.0-0.7); EOSINOPHILS % (AUTO) 1.2 % (0.0-6.0); HEMATOCRIT 21 % (33-45); LYMPHOCYTES % (AUTO) 7.1 % (20.0-44.0); MEAN CORPUSCULAR HEMOGLOBIN 29 PG (26.0-33.0); MEAN CORPUSCULAR HGB CONC 31 g/dl (31.0-36.0); MEAN CORPUSCULAR VOLUME 93 fL (82-100); MONOCYTES # (AUTO) 0.1 K/uL (0.1-1.30); MONOCYTES % (AUTO) 0.7 % (2.0-12.0); NEUTROPHILS # (AUTO) 12.8 K/uL (1.8-8.9); NEUTROPHILS % (AUTO) 90.7 % (43.0-81.0); RED CELL DISTRIBUTION WIDTH 20.4 % (11.5-15.0)
[2022-11-09 15:04] LABS: HEMOGLOBIN 6.7 g/dL (11.5-14.8); PLATELET COUNT (AUTO) 48 K/uL (150-450)
[2022-11-09 15:48] LABS: ANISOCYTOSIS 1+; BAND % (MANUAL) 1 % (0.0-5.0); LYMPHOCYTES % (MANUAL) 9 % (16-48); MONOCYTES % (MANUAL) 1 % (0-11.0); NEUTROPHILS % (MANUAL) 89 (42-76); PLATELET ESTIMATE DECREASED
[2022-11-09 16:10] LABS: WHITE BLOOD COUNT (AUTO) 14.1 K/uL (4.3-11.0)
[2022-11-09] MEDS: NOREPINEPHRINE 32 MG in IV NS 0.9% 218 ML IV PRN ×2 (16:37→22:04)
[2022-11-09 17:46] LABS: INR 1.54 (0.91-1.10); PARTIAL THROMBOPLASTIN TIME 34.3 SEC (24.3-34.3); PROTHROMBIN TIME 15.8 SECS (9.2-11.1)
[2022-11-09 17:50] LABS: D-DIMER 32.92 mg/L(FEU (0.17-0.50)
[2022-11-09 18:33] LABS: THYROID STIMULATING HORMONE 2.975 uIU/mL (0.358-3.74)
[2022-11-09] MEDS: PHENYLEPHRINE 100 MG in IV NS 0.9% 240 ML IV PRN ×2 (18:39→23:49)
[2022-11-09 19:06] LABS: RHEUMATOID FACTOR SCREEN NEGATIVE (NEGATIVE)
[2022-11-09] MEDS ORDERED: VASOPRESSIN INJ 40 UNIT in IV NS 0.9% 38 ML IV PRN (20:00)
[2022-11-09] MEDS ORDERED: EPINEPHRINE (1:1000) 1 MG/ML AMPUL ONE (21:18)
[2022-11-09] MEDS ORDERED: EPINEPHRINE (1:1000) 5 MG in IV NS 0.9% 245 ML IV PRN (21:30)
[2022-11-10] VITALS (14 sets, daily range): BP systolic 41–98; BP diastolic 13–79; TEMP 97.5–97.8; O2SAT 53–91
[2022-11-10] MEDS: EPINEPHRINE (1:1000) 10 MG in IV NS 0.9% 240 ML IV PRN ×3 (00:01→05:16)
[2022-11-10] MEDS: DEXTROSE 50%-WATER 50 ML DISP.SYRIN IV PRN ×2 (00:27→05:22)
[2022-11-10] MEDS: BLOOD SUGAR DIAGNOSTIC 1 EACH STRIP IN SCH ×2 (00:27→01:03)
[2022-11-10] MEDS ORDERED: IV NS 0.9% 250 ML IV PRN (00:30)
[2022-11-10] MEDS: ALBUTEROL FS 2.5 MG/0.5 ML VIAL.NEB NEB SCH (01:24)
[2022-11-10] MEDS: IPRATROPIUM NEB FS 0.5 MG/2.5 ML AMPUL.NEB IH SCH (01:24)
[2022-11-10] MEDS ORDERED: VASOPRESSIN INJ 20 UNIT/ML VIAL ONE (02:34)
[2022-11-10 08:07] LABS: FOLIC ACID > 20.0 ng/mL (>3.0); IMMUNOGLOBULIN A, SERUM 469 mg/dL (87-352); IMMUNOGLOBULIN G, SERUM 1049 mg/dL (586-1602); IMMUNOGLOBULIN M, SERUM 51 mg/dL (26-217)
[2022-11-10] MEDS ORDERED: EPINEPHRINE (1:1000) 1 MG/ML AMPUL SUBCUT ONE (08:40)
[2022-11-10 11:07] LABS: FREE KAPPA LT CHAINS SERUM 155.4 mg/L (3.3-19.4); FREE LAMBDA LT CHAIN SERUM 133.6 mg/L (5.7-26.3); KAPPA/LAMBDA RATIO SERUM 1.16 (0.26-1.65)
[2022-11-10 13:07] LABS: *ANA ANTI-CENTROMERE B AB 0.2 AI (0.0-0.9); *ANA ANTI-DNA(DS) AB, QN <1 IU/mL (0-9); *ANA ANTI-JO-1 <0.2 AI (0.0-0.9); *ANA ANTICHROMATIN ANTIBODY <0.2 AI (0.0-0.9); *ANA RNP ANTIBODIES 0.2 AI (0.0-0.9); *ANA SJOGREN'S ANTI-SS-A <0.2 AI (0.0-0.9); *ANA SJOGREN'S ANTI-SS-B <0.2 AI (0.0-0.9); *ANAANTI-SCLERODERMA-70 AB <0.2 AI (0.0-0.9); *ANASMITH AB <0.2 AI (0.0-0.9)
[2022-11-10 15:07] LABS: HEPATITIS B SURFACE AB Non Reactive (.)
== END 2022-11-10 08:41 | DRG 377 ==
LOC: ER 15:54 → TELE1 20:53 → ICU 11-08 03:31
PROVIDERS: ADMIT Nurse Practitioner Acute Care
PROC: 5A1955Z Respiratory Ventilation, Greater than 96 Consecutive Hours (ICD-10-PCS; principal; 2022-10-29)
PROC: 30233N1 Transfusion of Nonautologous Red Blood Cells into Peripheral Vein, Percutaneous Approach (ICD-10-PCS; 2022-10-29)
PROC: 0DJ08ZZ Inspection of Upper Intestinal Tract, Via Natural or Artificial Opening Endoscopic (ICD-10-PCS; 2022-11-03)
PROC: 05HC33Z Insertion of Infusion Device into Left Basilic Vein, Percutaneous Approach (ICD-10-PCS; 2022-11-08)
PROC: 30233R1 Transfusion of Nonautologous Platelets into Peripheral Vein, Percutaneous Approach (ICD-10-PCS; 2022-11-09)
DX: K29.71 Gastritis, unspecified, with bleeding (principal); E43 Unspecified severe protein-calorie malnutrition; G93.41 Metabolic encephalopathy; N17.0 Acute kidney failure with tubular necrosis; J96.20 Acute and chronic respiratory failure, unspecified whether with hypoxia or hypercapnia; R53.2 Functional quadriplegia; S11.02 Open wound of trachea; D68.59 Other primary thrombophilia; I13.0 Hypertensive heart and chronic kidney disease with heart failure and stage 1 through stage 4 chronic kidney disease, or unspecified chronic kidney disease; J91.0 Malignant pleural effusion; Z99.11 Dependence on respirator [ventilator] status; E87.0 Hyperosmolality and hypernatremia; E87.20 Acidosis, unspecified; C78.00 Secondary malignant neoplasm of unspecified lung; J98.11 Atelectasis; K94.23 Gastrostomy malfunction; N13.6 Pyonephrosis; R57.9 Shock, unspecified; C55 Malignant neoplasm of uterus, part unspecified; D64.9 Anemia, unspecified; I50.9 Heart failure, unspecified; N18.9 Chronic kidney disease, unspecified; Z66 Do not resuscitate; Z90.49 Acquired absence of other specified parts of digestive tract; Z86.73 Personal history of transient ischemic attack (TIA), and cerebral infarction without residual deficits; Z79.4 Long term (current) use of insulin; Z79.899 Other long term (current) drug therapy; Z79.51 Long term (current) use of inhaled steroids; Y95 Nosocomial condition; E88.09 Other disorders of plasma-protein metabolism, not elsewhere classified; E03.9 Hypothyroidism, unspecified; E11.22 Type 2 diabetes mellitus with diabetic chronic kidney disease; E78.5 Hyperlipidemia, unspecified; E86.1 Hypovolemia; D69.6 Thrombocytopenia, unspecified; Z74.09 Other reduced mobility; I08.0 Rheumatic disorders of both mitral and aortic valves; Y83.3 Surgical operation with formation of external stoma as the cause of abnormal reaction of the patient, or of later complication, without mention of misadventure at the time of the procedure; K94.29 Other complications of gastrostomy; N13.9 Obstructive and reflux uropathy, unspecified; L89.892 Pressure ulcer of other site, stage 2; L89.159 Pressure ulcer of sacral region, unspecified stage; R62.7 Adult failure to thrive; R13.10 Dysphagia, unspecified; Z68.34 Body mass index [BMI] 34.0-34.9, adult; E66.9 Obesity, unspecified; D63.0 Anemia in neoplastic disease; Y92.9 Unspecified place or not applicable; X58.XXXA Exposure to other specified factors, initial encounter; Y92.239 Unspecified place in hospital as the place of occurrence of the external cause
CPT/HCPCS: 31720; 36410; 36415; 36600; 71045-TC; 71250-TC; 74018; 76700-TC; 80048-TC; 80053-TC; 80076-TC; 82247-TC; 82248-TC; 82272-TC; 82378; 82533; 82550-TC; 82565-TC; 82607-TC; 82728-TC; 82784; 82803-TC; 82962-TC; 83540-TC; 83605-TC; 83735-TC; 83880; 83970; 84100-TC; 84155; 84165; 84443-TC; 85025-TC; 85027-TC; 85396; 85610-TC; 85730-TC; 86225; 86235; 86304; 86334; 86431-TC; 86706; 86803; 86850-TC; 87040-TC; 87081-TC; 87340; 94002-TC; 94003-TC; 94760-TC; 94762-TC; 94799-TC; 99082-TC; A4223; A4623; A6253; A6403; A7526; C9113; G0378; J0171; J0360; J0456; J0696; J0885; J1720; J1815; J1940; J2370; J2704; J3490; J7030; J7040; J7050; J7060; P9016; P9034